=== PATIENT | female | born 1960 | race Caucasian/White ===

== ENCOUNTER → 2016-07-11 | Outpatient (CLI) | payer MEDICARE ==
[2014-05-16 16:15] VITALS: BP 138/77
[~2016-07-11] MED LIST: ARIP5TAB6 PO; FAMO-63 PO; HYDR12.58 PO; LEVO50TA5 PO; LISI-334 PO; MUCINEX; OXYB10TA PO
--- NOTE | 2016-07-11 08:53 | RAD ---
Right lower extremity venous ultrasound, 07/11/2016 : History: Follow-up DVT Duplex evaluation including grayscale, color flow and spectral Doppler analysis was performed. The femoral and popliteal veins show no filling defects to suggest DVT. The visualized calf veins are unremarkable. IMPRESSION: There is no sonographic evidence of deep vein thrombosis in the right lower extremity
== END | disposition home or self-care (01) ==
LOC: US 07:37
PROVIDERS: ATTEND Nurse Practitioner Family
DX: I82.401 Acute embolism and thrombosis of unspecified deep veins of right lower extremity (principal)
CPT/HCPCS: 93971

== ENCOUNTER → 2016-08-17 | Outpatient (CLI) | payer MEDICARE ==
[2014-05-16 16:15] VITALS: BP 138/77
[~2016-08-17] MED LIST changes: +ARIP5TAB13 PO; -ARIP5TAB6 PO
--- NOTE | 2016-08-17 12:56 | RAD ---
Thoracic spine, 3 views, 08/17/2016: History: Spine pain The thoracic vertebral heights are well-maintained. No fracture or destructive bony lesion is seen. There are minimal scattered marginal spurs. The paraspinous soft tissues are unremarkable. IMPRESSION: 1. Minimal marginal spurring. 2. No acute abnormality is detected. Lumbar spine, 3 views, 08/17/2016: Comparison is made to a study from 12/09/2015. The lumbar vertebral heights are well-maintained. There are moderate degenerative changes involving the facet joints bilaterally in the lower lumbar spine. A minimal associated spondylolisthesis has developed at the L4-5 level. There is minimal narrowing of the disc spaces at L4-5 and L5-S1. Aortic calcific plaquing is present. IMPRESSION: 1. Moderate facet joint arthropathy in the lumbar spine with a minimal associated spondylolisthesis at L4-5. 2. No acute bony abnormality is detected.
== END | disposition home or self-care (01) ==
LOC: DXRADRC 12:00
PROVIDERS: ATTEND Nurse Practitioner Family
DX: M43.16 Spondylolisthesis, lumbar region (principal); M12.88 Other specific arthropathies, not elsewhere classified, other specified site
CPT/HCPCS: 72072; 72100

== ENCOUNTER 2016-11-08 06:27 | Emergency (ER) | payer MEDICARE ==
[~2016-11-08] VITALS: Ht 165.1 cm; Wt 106.6 kg
[2016-11-08] MEDS ORDERED: IV NORMAL SALINE 1,000ML 1,000 ML IV ONE (07:00)
[2016-11-08] MEDS ORDERED: diphenhydrAMINE 50 MG/ML VIAL IVP ONE (07:00)
[2016-11-08] MEDS ORDERED: fentaNYL PF 100 MCG/2 ML VIAL IV ONE (07:00)
[2016-11-08] MEDS ORDERED: METOCLOPRAMIDE HCL 10 MG/2 ML VIAL. IV ONE (07:00)
[2016-11-08] MEDS ORDERED: LISI1TAB7 PO (07:08)
[2016-11-08] MEDS ORDERED: RIVA10TA PO (07:08)
[2016-11-08] MEDS ORDERED: ACET325T9 PO (07:08)
[2016-11-08] MEDS ORDERED: CITA20TA5 PO (07:08)
[2016-11-08] MEDS ORDERED: ARIP10TA9 PO (07:08)
[2016-11-08] MEDS ORDERED: LEVO75TA5 PO (07:08)
[2016-11-08] MEDS ORDERED: TOLT4CAP PO (07:08)
[2016-11-08] MEDS ORDERED: CLON0.5T3 PO (07:11)
[2016-11-08 07:27] LABS: BASO # 0.1 x10^3/uL (0.0-0.2); BASO % 1 % (0-3); EOS # 0.1 x10^3/uL (0.0-0.7); EOS % 1 % (0-3); HEMATOCRIT 44.8 % (36.0-47.0); HEMOGLOBIN 14.9 g/dL (12.0-15.5); LYMPH # 2.8 x10^3/uL (1.0-4.8); LYMPH % 28 % (24-48); MEAN CORPUSCULAR HEMOGLOBIN 29 pg (25-35); MEAN CORPUSCULAR HGB CONC 33 g/dL (31-37); MEAN CORPUSCULAR VOLUME 87 fL (79-100); MONO # 0.8 x10^3/uL (0.0-1.1); MONO % 8 % (0-9); NEUT # 6.1 x10^3uL (1.8-7.7); NEUT % 62 % (31-73); PLATELET COUNT 201 x10^3/uL (140-400); RED BLOOD COUNT 5.18 x10^6/uL (3.50-5.40); RED CELL DISTRIBUTION WIDTH 14.4 % (11.5-14.5); WHITE BLOOD COUNT 9.9 x10^3/uL (4.0-11.0)
--- NOTE | 2016-11-08 07:27 | RAD ---
Exam performed: CT scan of the head without contrast. Date of Service: 11/08/16. Comparison: CT head without contrast from 01/27/11. Clinical History: Blurred vision, dizziness and headache. Technique: Helical acquisitions are obtained from the foramen magnum to the vertex without intravenous administration of contrast. Findings: The ventricles are midline without evidence of dilatation. Normal mcdonnell-white differentiation is maintained. There is no extra axial fluid collection, intraparenchymal hemorrhage or mass lesion. The visualized portions of the orbits, paranasal sinuses and the mastoid air cells appear clear. The calvarium is intact. Impression: 1. No acute intracranial process detected. PQRS Compliance Statement: One or more of the following individualized dose reduction techniques were utilized for this examination: 1. Automated exposure control 2. Adjustment of the mA and/or kV according to patient size 3. Use of iterative reconstruction technique
[2016-11-08 07:28] LABS: CALCIUM 9.2 mg/dL (8.5-10.1); CREATININE 0.9 mg/dL (0.6-1.0); POTASSIUM 3.7 mmol/L (3.5-5.1)
[2016-11-08] MEDS ORDERED: KETOROLAC 30 MG/ML VIAL. IV ONE (08:30)
[2016-11-08 08:55] VITALS: BP 118/63
--- NOTE | 2016-11-08 14:44 | ED.ADGEN ---
Past History Past Medical History: Anxiety, Asthma, Bipolar, COPD, Depression, DVT, Hypertension Past Surgical History: No Surgical History Alcohol Use: None Drug Use: Benzodiazepine Adult General Chief Complaint Chief Complaint Headache HPI HPI Patient is a 56-year-old female presents with generalized headache after waking this morning. Headache is described as throbbing, rated moderate to severe. Patient also reports scalp tenderness with burning sensation. No identifiable rash. A chest is not relieved or improved with position change or exertion. Patient's taken Tylenol limited improvement. Patient noted to be hypertensive on ED arrival. Patient did take blood pressure medications just prior to ED arrival Denies neck pain, neck stiffness or rash, sore throat, fever. Denies sinus congestion, tenderness. No other acute symptoms or complaints. No familial history of subarachnoid hemorrhage. This is not the worst headache patient's life. Review of Systems Review of Systems ROS as per HPI. Current Medications Current Medications Current Medications Medications (Trade) Dose Ordered Sig/Fiorella Start Time Stop Time Status Last Admin Dose Admin Diphenhydramine HCl (Benadryl) 25 mg 1X ONCE 11/08/16 07:00 11/08/16 07:01 DC 11/08/16 07:08 25 MG Fentanyl Citrate (Fentanyl 2ml Vial) 75 mcg 1X ONCE 11/08/16 07:00 11/08/16 07:01 DC 11/08/16 07:09 75 MCG Ketorolac Tromethamine (Toradol) 30 mg 1X ONCE 11/08/16 08:30 11/08/16 08:31 DC 11/08/16 08:30 30 MG Metoclopramide HCl (Reglan) 10 mg 1X ONCE 11/08/16 07:00 11/08/16 07:01 DC 11/08/16 07:08 10 MG Sodium Chloride 1,000 ml @ 1,000 mls/hr 1X ONCE 11/08/16 07:00 11/08/16 07:59 DC 11/08/16 07:04 1,000 MLS/HR Allergies Allergies Allergies Coded Allergies Type Severity Reaction Last Updated Verified amoxicillin Allergy Intermediate Rash 05/16/14 Yes carbamazepine Allergy Intermediate 05/16/14 Yes penicillin G Allergy Intermediate Hives 05/16/14 Yes Uncoded Allergies Type Severity Reaction Last Updated Verified control Adverse Reaction Intermediate 05/16/14 Physical Exam Physical Exam Constitutional: Well developed, well nourished, no acute distress, non-toxic appearance. [] HENT: Normocephalic, atraumatic, bilateral external ears normal, oropharynx moist, no oral exudates, nose normal. [] Eyes: PERRLA, EOMI, conjunctiva normal, no discharge. [] Neck: Normal range of motion, no tenderness, supple, no stridor. [] Cardiovascular:Heart rate regular rhythm, no murmur [] Lungs & Thorax: Bilateral breath sounds clear to auscultation [] Abdomen: Bowel sounds normal, soft, no tenderness, no masses, no pulsatile masses. [] Skin: Warm, dry, no erythema, no rash. [] Back: No tenderness. [] Extremities: No tenderness, no cyanosis, no clubbing, ROM intact, no edema. [] Neurologic: Alert and oriented X 3, CN@-12, normal motor function, normal sensory function, no focal deficits noted. [] Psychologic: Affect normal, judgement normal, mood normal. [] Current Patient Data Vital Signs Vital Signs Date Time Temp Pulse Resp B/P (MAP) Pulse Ox O2 Delivery O2 Flow Rate FiO2 11/08/16 08:55 58 16 118/63 (81) 97 Room Air 11/08/16 06:40 97.7 Lab Results Laboratory Tests Test 11/08/16 06:45 White Blood Count 9.9 x10^3/uL (4.0-11.0) Red Blood Count 5.18 x10^6/uL (3.50-5.40) Hemoglobin 14.9 g/dL (12.0-15.5) Hematocrit 44.8 % (36.0-47.0) Mean Corpuscular Volume 87 fL (79-100) Mean Corpuscular Hemoglobin 29 pg (25-35) Mean Corpuscular Hemoglobin Concent 33 g/dL (31-37) Red Cell Distribution Width 14.4 % (11.5-14.5) Platelet Count 201 x10^3/uL (140-400) Neutrophils (%) (Auto) 62 % (31-73) Lymphocytes (%) (Auto) 28 % (24-48) Monocytes (%) (Auto) 8 % (0-9) Eosinophils (%) (Auto) 1 % (0-3) Basophils (%) (Auto) 1 % (0-3) Neutrophils # (Auto) 6.1 x10^3uL (1.8-7.7) Lymphocytes # (Auto) 2.8 x10^3/uL (1.0-4.8) Monocytes # (Auto) 0.8 x10^3/uL (0.0-1.1) Eosinophils # (Auto) 0.1 x10^3/uL (0.0-0.7) Basophils # (Auto) 0.1 x10^3/uL (0.0-0.2) Prothrombin Time 11.7 SEC (9.4-11.4) H Prothrombin Time INR 1.1 (0.9-1.1) Sodium Level 140 mmol/L (136-145) Potassium Level 3.7 mmol/L (3.5-5.1) Chloride Level 103 mmol/L (98-107) Carbon Dioxide Level 31 mmol/L (21-32) Anion Gap 6 (6-14) Blood Urea Nitrogen 14 mg/dL (7-20) Creatinine 0.9 mg/dL (0.6-1.0) Estimated GFR (Cockcroft-Gault) 65.0 Glucose Level 100 mg/dL (70-99) H Calcium Level 9.2 mg/dL (8.5-10.1) EKG EKG [] Radiology/Procedures Radiology/Procedures [CT head: negative. ] Course & Med Decision Making Course & Med Decision Making Pertinent Labs and Imaging studies reviewed. (See chart for details) [Headache resolved with treatment. Blood pressure improved. No focal neurologic deficits on evaluation. We'll treat supportively with PCP follow-up. Return precautions reviewed.] Final Impression Final Impression [1 Headache 2. Accelerated hypertension] Problems: Dragon Disclaimer Dragon Disclaimer This electronic medical record was generated, in whole or in part, using a voice recognition dictation system. PILAR VIDAL DO Nov 08, 2016 14:44
== END 2016-11-08 08:55 | disposition home or self-care (01) ==
LOC: ER 06:27
DX: R51 Headache (principal); I10 Essential (primary) hypertension; J44.9 Chronic obstructive pulmonary disease, unspecified; F41.9 Anxiety disorder, unspecified; F31.9 Bipolar disorder, unspecified; Z86.718 Personal history of other venous thrombosis and embolism; Z88.1 Allergy status to other antibiotic agents; Z88.0 Allergy status to penicillin; Z88.8 Allergy status to other drugs, medicaments and biological substances
CPT/HCPCS: 36415; 70450; 80048; 85025; 85610; 96361; 96374; 96375; 99285; J1200; J1885; J2765; J3010; J7030

== ENCOUNTER → 2016-11-13 | Outpatient (CLI) | payer MEDICARE ==
[2016-11-08 08:55] VITALS: BP 118/63
[~2016-11-13] MED LIST changes: +ACET325T9 PO; +ARIP10TA9 PO; +CITA20TA5 PO; +CLON0.5T3 PO; +LEVO75TA5 PO; +LISI1TAB7 PO; +RIVA10TA PO; +TOLT4CAP PO
--- NOTE | 2016-11-13 12:32 | RAD ---
Chest, 2 views, 11/13/2016: History: Neck pain, COPD Comparison is made to a study from 01/19/2016. The heart size and pulmonary vascularity are normal. No pulmonary infiltrates are seen. There is no evidence of pleural fluid. IMPRESSION: No acute cardiopulmonary abnormality is detected.
--- NOTE | 2016-11-13 16:13 | RAD ---
Cervical spine, 3 views, 11/13/2016: History: Neck pain There are moderate scattered spurs in the mid and lower cervical spine. The disc spaces are only mildly narrowed. There are moderate degenerative changes involving scattered facet joints bilaterally. No fracture or dislocation is identified. The prevertebral soft tissues are unremarkable. IMPRESSION: 1. Moderate multilevel degenerative change. 2. No acute bony abnormality is detected.
== END | disposition home or self-care (01) ==
LOC: DXRADRC 10:36
PROVIDERS: ATTEND Nurse Practitioner Family
DX: J44.9 Chronic obstructive pulmonary disease, unspecified (principal); M47.892 Other spondylosis, cervical region; M53.82 Other specified dorsopathies, cervical region; Z85.118 Personal history of other malignant neoplasm of bronchus and lung; Z87.891 Personal history of nicotine dependence
CPT/HCPCS: 71020; 72040

== ENCOUNTER → 2016-12-04 | Outpatient (CLI) | payer MEDICARE ==
[2016-11-08 08:55] VITALS: BP 118/63
--- NOTE | 2016-12-07 18:05 | RAD ---
APPROVED REPORT Patient Location : OUT-PATIENT Indications Varicose Veins Limited grayscale images of the bilateral common femoral veins and saphenofemoral junctions does not reveal any evidence of thrombus. The right great saphenous vein measures approximately 4.9 mm and parks s not show any evidence of reflux. The left great saphenous vein measures approximately 5 mm and does not show any evidence of reflux. There are bilateral spider veins noted on the lower extremities. The bilateral lesser saphenous veins do not demonstrate any reflux and the right lesser saphenous vein measures 5.3 mm while the left les ser saphenous vein measures 4.6 mm in greatest dimension. Critical Notification Critical Value: No <Conclusion> Negative for reflux in the bilateral greater and lesser saphenous veins
== END | disposition home or self-care (01) ==
LOC: US 08:35
PROVIDERS: ATTEND Internal Medicine Cardiovascular Disease
DX: I87.2 Venous insufficiency (chronic) (peripheral) (principal)
CPT/HCPCS: 93970

== ENCOUNTER → 2016-12-04 | Outpatient (CLI) | payer MEDICARE ==
[2016-11-08 08:55] VITALS: BP 118/63
--- NOTE | 2016-12-04 12:38 | CARD ---
APPROVED REPORT EXAM: Two-dimensional and M-mode echocardiogram with Doppler and color Doppler. Other Information Quality : Average Rhythm : NSR INDICATION Hypertension/HCVD 2D DIMENSIONS RVDd2.6 (2.9-3.5cm)Left Atrium(2D)3.5 (1.6-4.0cm) IVSd1.1 (0.7-1.1cm)Aortic Root(2D)3.1 (2.0-3.7cm) LVDd5.0 (3.9-5.9cm)LVOT Diameter2.1 (1.8-2.4cm) PWd1.1 (0.7-1.1cm)LVDs3.6 (2.5-4.0cm) FS (%) 29.1 %SV66.3 ml LVEF(%)55.6 (>50%) Aortic Valve AoV Peak Kobi.134.6cm/sAoV VTI31.2cm AO Peak GR.7.3mmHgLVOT Peak Kobi.95.6cm/s LVOT VTI 23.77cmAO Mean GR.4mmHg AKIKO (VMAX)2.35jc8UQB (VTI)2.57cm2 Mitral Valve MV E Xmrmwlev12.0cm/sMV DECEL [id number] MV A Uulwlmgy24.3cm/sMV TYK79tz E/A Ratio1.1MV A Qhffvuhi394xg MVA (PHT)4.33cm2 Tricuspid Valve TR P. Nrpivhuo924hz/sRAP JPEYKMPZ4bqNh TR Peak Gr.70iuLkUOEJ51ddEf Pulmonary Vein S1 Rrsljwfh67.6cm/sD2 Tfzrheeg50.5cm/s LEFT VENTRICLE The left ventricle is normal size. There is normal left ventricular wall thickness. Left ventricle sy stolic function is normal. The Ejection Fraction is 55-60%. There is normal LV segmental wall motion. The left ventricular diastolic function and filling is normal for age. There is no ventricular septa l defect visualized. RIGHT VENTRICLE The right ventricle is normal size. The right ventricular systolic function is normal. ATRIA The left atrium size is normal. The right atrium size is normal. The interatrial septum is intact wit h no evidence for an atrial septal defect or patent foramen ovale as noted on 2-D or Doppler imaging. AORTIC VALVE The aortic valve is not well visualized. Doppler and Color Flow revealed no significant aortic regurg itation. There is no significant aortic valvular stenosis. MITRAL VALVE The mitral valve is normal in structure and function. There is no mitral valve stenosis. Doppler and Color Flow revealed trace mitral regurgitation. TRICUSPID VALVE The tricuspid valve is normal in structure. Doppler and Color Flow revealed mild tricuspid regurgitat ion. The PA pressure was estimated at 30 mmHg. There is no tricuspid valve stenosis. PULMONIC VALVE The pulmonic valve is not well visualized. Doppler and Color Flow revealed no pulmonic valvular regur gitation. There is no pulmonic valvular stenosis. GREAT VESSELS The aortic root is normal in size. The ascending aorta is normal in size. Normal pulmonary venous adolph w (Doppler). The IVC is normal in size and collapses >50% with inspiration. PERICARDIAL EFFUSION There is no evidence of significant pericardial effusion. Critical Notification Critical Value: No <Conclusion> The left ventricle is normal size. Left ventricle systolic function is normal. The Ejection Fraction is 55-60%. There is normal left ventricular wall thickness. There is no significant aortic valvular stenosis. Doppler and Color Flow revealed no significant aortic regurgitation. Doppler and Color Flow revealed trace mitral regurgitation. Doppler and Color Flow revealed mild tricuspid regurgitation. The PA pressure was estimated at 30 mmHg.
== END | disposition home or self-care (01) ==
LOC: ECHO 07:46
PROVIDERS: ATTEND Internal Medicine Cardiovascular Disease
DX: I34.0 Nonrheumatic mitral (valve) insufficiency (principal); I10 Essential (primary) hypertension; R60.0 Localized edema
CPT/HCPCS: 93306

== ENCOUNTER → 2017-01-14 | Outpatient (CLI) | payer MEDICARE ==
--- NOTE | 2017-01-14 10:04 | RAD ---
Three-view study of the left knee History: Left knee pain for 3 months. Findings: No acute fracture or dislocation or osteolytic process is seen. Small joint effusion is evident. There is degenerative spurring and mild joint space narrowing of the medial and lateral tibiofemoral joint compartments and the patellofemoral joint compartment. IMPRESSION: Mild primary tricompartmental degenerative osteoarthritis.
--- NOTE | 2017-01-14 11:20 | RAD ---
EXAM: Left lower extremity venous Doppler. HISTORY: Left lower extremity pain/swelling. COMPARISON: None. FINDINGS: Grayscale and Doppler analysis of the left lower extremity deep venous system was performed with graded compression and augmentation. The common femoral, greater saphenous, superficial femoral, popliteal and calf veins were assessed. There is no evidence of deep venous thrombosis. IMPRESSION: 1. No evidence of deep venous thrombosis.
== END | disposition home or self-care (01) ==
LOC: DXRAD 09:26
PROVIDERS: ATTEND Specialist
DX: M16.12 Unilateral primary osteoarthritis, left hip (principal); M25.452 Effusion, left hip; M79.605 Pain in left leg; M79.89 Other specified soft tissue disorders
CPT/HCPCS: 73562; 93971

== ENCOUNTER → 2017-06-05 | Outpatient (CLI) | payer MEDICARE ==
--- NOTE | 2017-06-05 09:49 | RAD ---
Indication: Bilateral leg pain and calf pain for one week. Technique: Grayscale, color Doppler and spectral waveform images of the bilateral lower extremity. Comparison: Previous study from 04/21/2015. Findings: Bilateral lower extremity major arteries demonstrate triphasic waveforms and no abnormally elevated peak systolic velocity. No grayscale imaging evidence of significant atherosclerotic disease. Impression: No sonographic evidence of significant atherosclerotic disease or hemodynamically significant stenosis.
== END | disposition home or self-care (01) ==
LOC: US 08:46
PROVIDERS: ATTEND Specialist
DX: M79.605 Pain in left leg (principal); M79.604 Pain in right leg
CPT/HCPCS: 93925

== ENCOUNTER → 2017-12-13 | Outpatient (CLI) | payer MEDICARE ==
[~2017-12-13] MED LIST changes: -CITA20TA5 PO; +CITA20TA6 PO; +CLON0.5T11 PO; -CLON0.5T3 PO
--- NOTE | 2017-12-13 14:59 | RAD ---
EXAM: Pelvic sonogram. HISTORY: Uterovaginal prolapse. TECHNIQUE: Transabdominal and transvaginal sonographic imaging of the pelvis was performed. COMPARISON: None. FINDINGS: The exam is limited due to body habitus. The uterus is retroverted and measures 7.3 x 5.5 x 3.9 cm. The the endometrial stripe measures 6.4 mm in thickness. There are suspected small fluid collections within the endometrium. There are nabothian cysts within the cervix. The right ovary measures 1.6 x 1.5 x 2.1 cm. The left ovary measures 1.7 x 1.5 x 2.1 cm. There is normal blood flow within both ovaries. There is no pelvic free fluid. IMPRESSION: 1. Slightly thickened endometrial stripe for the postmenopausal status the patient and small suspected endometrial cyst or fluid collections. Tissue sampling can be performed for definitive diagnosis if there is postmenopausal bleeding or alternative concern for endometrial pathology. 2. Retroverted uterus and nabothian cysts within the cervix. Electronically signed by: Cheryl Thapa MD (12/13/2017 2:55 PM) [facility]
== END | disposition home or self-care (01) ==
LOC: US 08:40
PROVIDERS: ATTEND Obstetrics & Gynecology
DX: N85.4 Malposition of uterus (principal)
CPT/HCPCS: 76830; 76856

== ENCOUNTER 2018-10-19 14:08 | Emergency (ER) | payer MEDICARE ==
[2018-10-19 15:01] VITALS: BP 135/93
[2018-10-19] MEDS ORDERED: methylPREDNISolone SOD SUCC PF 125 MG/2 ML VIAL. IV ONE (15:45)
[2018-10-19] MEDS ORDERED: IPRATRPIUM/ALBUTEROL 0.5/2.5MG 3 ML NEBU. NEB ONE (15:45)
--- NOTE | 2018-10-19 15:58 | RAD ---
Exam: Chest 2 views INDICATION: Dyspnea TECHNIQUE: Frontal and lateral views of the chest Comparisons: 11/13/2016 FINDINGS: The cardiomediastinal silhouette and pulmonary vessels are within normal limits. The lung and pleural spaces are clear. IMPRESSION: No acute cardiopulmonary process. Electronically signed by: Nataliia Shepherd MD (10/19/2018 3:55 PM) [facility]
[2018-10-19 15:59] LABS: BASO # 0.2 x10^3/uL (0.0-0.2); BASO % 1 % (0-3); EOS # 0.2 x10^3/uL (0.0-0.7); EOS % 1 % (0-3); HEMATOCRIT 40.4 % (36.0-47.0); HEMOGLOBIN 12.8 g/dL (12.0-15.5); LYMPH # 2.8 x10^3/uL (1.0-4.8); LYMPH % 20 % (24-48); MEAN CORPUSCULAR HEMOGLOBIN 25 pg (25-35); MEAN CORPUSCULAR HGB CONC 32 g/dL (31-37); MEAN CORPUSCULAR VOLUME 78 fL (79-100); MONO # 1.3 x10^3/uL (0.0-1.1); MONO % 9 % (0-9); NEUT # 9.6 x10^3uL (1.8-7.7); NEUT % 69 % (31-73); PLATELET COUNT 346 x10^3/uL (140-400); RED BLOOD COUNT 5.16 x10^6/uL (3.50-5.40); WHITE BLOOD COUNT 13.9 x10^3/uL (4.0-11.0)
[2018-10-19 16:15] LABS: ALBUMIN 3.4 g/dL (3.4-5.0); ALBUMIN/GLOBULIN RATIO 0.9 (1.0-1.7); CALCIUM 9.1 mg/dL (8.5-10.1); CREATININE 0.9 mg/dL (0.6-1.0); GFR 64.5; POTASSIUM 3.4 mmol/L (3.5-5.1); TOTAL BILIRUBIN 0.3 mg/dL (0.2-1.0); TOTAL PROTEIN 7.2 g/dL (6.4-8.2)
--- NOTE | 2018-10-19 16:18 | PHYS DOC ---
Past History Past Medical History: Bipolar, Depression, GERD, Hypertension Past Surgical History: Appendectomy, Hysterectomy Alcohol Use: None Drug Use: None Adult General Chief Complaint Chief Complaint: MULTIPLE COMPLAINTS HPI HPI Patient is a 58-year-old female who presents with one-week history of cough, congestion, wheezing and some diarrhea over the last few days. Patient states that she had been in to see her doctor shortly after onset of symptoms and was prescribed antibiotics and steroids and states that she finished the antibiotic but she had lost the prescription for steroids. She states that initially symptoms had improved but are getting worse again. She is not sure whether or not she has been running a fever but does indicate that she has had some hot and cold spells where she gets sweaty at times. She denies any nausea or vomiting. She does indicate that she is getting sore in her chest from all the coughing.[] Review of Systems Review of Systems Constitutional: Denies fever or chills [] Respiratory: Complains of cough and shortness of breath [] Cardiovascular: No additional information not addressed in HPI [] GI: Denies abdominal pain, nausea or vomiting. Complains of diarrhea [] Neurologic: Denies headache, focal weakness or sensory changes [] All other systems were reviewed and found to be within normal limits, except as documented in this note. Current Medications Current Medications Current Medications Medications (Trade) Dose Ordered Sig/Fiorella Start Time Stop Time Status Last Admin Dose Admin Albuterol/ Ipratropium (Duoneb) 3 ml 1X ONCE 10/19/18 15:45 10/19/18 15:46 DC 10/19/18 15:47 3 ML Methylprednisolone Sodium Succinate (SOLU-Medrol 125MG VIAL) 125 mg 1X ONCE 10/19/18 15:45 10/19/18 15:46 DC 10/19/18 15:47 125 MG Allergies Allergies Allergies Coded Allergies Type Severity Reaction Last Updated Verified amoxicillin Allergy Intermediate Rash 05/16/14 Yes carbamazepine Allergy Intermediate 05/16/14 Yes penicillin G Allergy Intermediate Hives 05/16/14 Yes Uncoded Allergies Type Severity Reaction Last Updated Verified control Adverse Reaction Intermediate 05/16/14 Physical Exam Physical Exam Constitutional: Well developed, well nourished, no acute distress, non-toxic appearance. [] HENT: Normocephalic, atraumatic, bilateral external ears normal, oropharynx moist, no oral exudates, nose normal. [] Eyes: PERRLA, EOMI, conjunctiva normal, no discharge. [] Neck: Normal range of motion, no tenderness, supple, no stridor. [] Cardiovascular:Heart rate regular rhythm, no murmur [] Lungs & Thorax: Fine rhonchi are noted bilaterally to auscultation [] Abdomen: Bowel sounds normal, soft, no tenderness. [] Skin: Warm, dry, no erythema, no rash. [] Extremities: No tenderness, no cyanosis, no clubbing, ROM intact, no edema. [] Neurologic: Alert and oriented X 3, normal motor function, normal sensory function, no focal deficits noted. [] Current Patient Data Vital Signs Vital Signs Date Time Temp Pulse Resp B/P (MAP) Pulse Ox O2 Delivery O2 Flow Rate FiO2 10/19/18 15:01 97.8 69 18 94 Room Air Lab Results Laboratory Tests Test 10/19/18 15:44 White Blood Count 13.9 x10^3/uL (4.0-11.0) H Red Blood Count 5.16 x10^6/uL (3.50-5.40) Hemoglobin 12.8 g/dL (12.0-15.5) Hematocrit 40.4 % (36.0-47.0) Mean Corpuscular Volume 78 fL (79-100) L Mean Corpuscular Hemoglobin 25 pg (25-35) Mean Corpuscular Hemoglobin Concent 32 g/dL (31-37) Red Cell Distribution Width 17.0 % (11.5-14.5) H Platelet Count 346 x10^3/uL (140-400) Neutrophils (%) (Auto) 69 % (31-73) Lymphocytes (%) (Auto) 20 % (24-48) L Monocytes (%) (Auto) 9 % (0-9) Eosinophils (%) (Auto) 1 % (0-3) Basophils (%) (Auto) 1 % (0-3) Neutrophils # (Auto) 9.6 x10^3uL (1.8-7.7) H Lymphocytes # (Auto) 2.8 x10^3/uL (1.0-4.8) Monocytes # (Auto) 1.3 x10^3/uL (0.0-1.1) H Eosinophils # (Auto) 0.2 x10^3/uL (0.0-0.7) Basophils # (Auto) 0.2 x10^3/uL (0.0-0.2) Sodium Level 139 mmol/L (136-145) Potassium Level 3.4 mmol/L (3.5-5.1) L Chloride Level 101 mmol/L (98-107) Carbon Dioxide Level 30 mmol/L (21-32) Anion Gap 8 (6-14) Blood Urea Nitrogen 11 mg/dL (7-20) Creatinine 0.9 mg/dL (0.6-1.0) Estimated GFR (Cockcroft-Gault) 64.5 BUN/Creatinine Ratio 12 (6-20) Glucose Level 85 mg/dL (70-99) Calcium Level 9.1 mg/dL (8.5-10.1) Total Bilirubin 0.3 mg/dL (0.2-1.0) Aspartate Amino Transferase (AST) 15 U/L (15-37) Alanine Aminotransferase (ALT) 22 U/L (14-59) Alkaline Phosphatase 86 U/L (46-116) JD-Rsk-Z-Type Natriuretic Peptide 67 pg/mL (0-124) Total Protein 7.2 g/dL (6.4-8.2) Albumin 3.4 g/dL (3.4-5.0) Albumin/Globulin Ratio 0.9 (1.0-1.7) L EKG EKG [] Radiology/Procedures Radiology/Procedures [] Impressions: PROCEDURE: CHEST PA & LATERAL Exam: Chest 2 views INDICATION: Dyspnea TECHNIQUE: Frontal and lateral views of the chest Comparisons: 11/13/2016 FINDINGS: The cardiomediastinal silhouette and pulmonary vessels are within normal limits. The lung and pleural spaces are clear. IMPRESSION: No acute cardiopulmonary process. Electronically signed by: Nataliia Shepherd MD (10/19/2018 3:55 PM) [facility] Course & Med Decision Making Course & Med Decision Making Pertinent Labs and Imaging studies reviewed. (See chart for details) [] Dragon Disclaimer Dragon Disclaimer This electronic medical record was generated, in whole or in part, using a voice recognition dictation system. Departure Departure: Impression: Primary Impression: Bronchitis with bronchospasm Additional Impression: Diarrhea Disposition: 01 HOME, SELF-CARE Condition: STABLE Referrals: JEANETTE JOY MD (PCP) Patient Instructions: Acute Bronchitis, Bronchospasm, Adult, Diarrhea Scripts Metronidazole (FLAGYL) 500 Mg Tablet 500 MG PO 3 TIMES A DAY for iNFECTION, #30 TAB Prov: NEISHA GODFREY Jr. DO 10/19/18 Guaifenesin/Codeine Phosphate (CHERATUSSIN AC SYRUP) 118 Ml Liquid 5 ML PO PRN Q6HRS PRN for COUGH, #120 ML Prov: NEISHA GODFREY Jr. DO 10/19/18 Diphenoxylate Hcl/Atropine (LOMOTIL TABLET) 1 Each Tablet 1 TAB PO TID PRN for DIARRHEA, #15 TAB Prov: NEISHA GODFREY Jr. DO 10/19/18 Levofloxacin (LEVAQUIN) 500 Mg Tablet 1 TAB PO DAILY for INFECTION, #10 TAB Prov: NEISHA GODFREY Jr. DO 10/19/18 Problem Qualifiers Additional Impression: Diarrhea Diarrhea type: unspecified type Qualified Codes: R19.7 - Diarrhea, un specified NEISHA GODFREY Jr. DO Oct 19, 2018 16:18
--- NOTE | 2018-10-19 16:22 | EKG ---
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
[2018-10-19] MEDS ORDERED: levoFLOXacin 500 MG TABLET PO ONE (16:45)
[2018-10-19] MEDS ORDERED: METR500T PO (17:12)
[2018-10-19] MEDS ORDERED: GUAI118L20 PO (17:12)
[2018-10-19] MEDS ORDERED: LEVO500T59 PO (17:12)
[2018-10-19] MEDS ORDERED: DIPH1TAB PO (17:12)
== END 2018-10-19 17:47 | disposition home or self-care (01) ==
LOC: ER 14:08
DX: J98.01 Acute bronchospasm (principal); J40 Bronchitis, not specified as acute or chronic; R19.7 Diarrhea, unspecified; K21.9 Gastro-esophageal reflux disease without esophagitis; I10 Essential (primary) hypertension; Z88.0 Allergy status to penicillin; Z88.1 Allergy status to other antibiotic agents; Z88.8 Allergy status to other drugs, medicaments and biological substances
CPT/HCPCS: 36415; 71046; 80053; 83880; 85025; 93005; 94640; 96374; 99285; J2930; J7620

== ENCOUNTER 2018-11-06 17:31 | Emergency (ER) | payer MEDICARE ==
[~2018-11-06] VITALS: Ht 165.1 cm; Wt 113.4 kg
[~2018-11-06 17:31] MED LIST changes: +DIPH1TAB PO; +GUAI118L20 PO; +LEVO500T59 PO; +LISI1TAB20 PO; -LISI1TAB7 PO; +METR500T PO; -OXYB10TA PO; +OXYB10TA2 PO
--- NOTE | 2018-11-06 18:14 | EKG ---
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
[2018-11-06] MEDS ORDERED: IV NORMAL SALINE 1,000ML 1,000 ML IV ONE (18:45)
[2018-11-06] MEDS ORDERED: ONDANSETRON PF 4 MG/2 ML VIAL. IV ONE (18:45)
--- NOTE | 2018-11-06 19:21 | RAD ---
CT Abdomen and Pelvis without contrast History: Lower abdominal pain, nausea and vomiting Technique: Noncontrast CT imaging was performed of the abdomen and pelvis. Multiplanar images are reviewed. Exposure: One or more of the following individualized dose reduction techniques were utilized for this examination: 1. Automated exposure control 2. Adjustment of the mA and/or kV according to patient size 3. Use of iterative reconstruction technique. Comparison: July 17, 2012 Findings: There is [id number] size hiatal hernia, nonspecific wall thickening of involved segment. Accurate evaluation of abdominal visceral organs is limited without intravenous contrast, no obvious focal abnormality of the liver or pain previous. Right lobe of the liver is enlarged about 20.8 cm longitudinal. There are some splenic granulomas. Gallbladder is present without obvious intraluminal abnormality by CT. There is no hydronephrosis of either kidney, no renal calculus. There is no adrenal nodularity. Accurate evaluation of bowel is limited without oral contrast. Bowel is not significantly dilated. There is no significant free fluid or free air. Reportedly there has been appendectomy. There has been hysterectomy. There is some fat in the inguinal canals bilaterally, no bowel. There is mild distention of the urinary bladder. There is mild sigmoid diverticulosis not associated with inflammatory change. There is likely of small left ventral fat-containing hernia with strandy change about the margin, no internal bowel. Fascial defect is probably on the order of about 0.5 cm. There is also mild nonspecific fluid in the small hernia sac, hernia sac estimated about 4 cm transverse. There is multilevel lumbar facet degenerative change. Impression: 1. There is mild colonic diverticulosis without evidence of diverticulitis. 2. There is small left ventral fat-containing hernia, some strandy change at the neck of hernia sac which could be seen with incarceration or strangulation, no associated bowel. There is also minimal fluid in the hernia sac. 3. There is hepatomegaly. 4. There is ucrcb-vs-yadndilz size hiatal hernia, nonspecific wall thickening of involved segment. Electronically signed by: Cristian Mehta MD (11/06/2018 7:18 PM) [facility]
[2018-11-06 19:25] LABS: BASO # 1.1 x10^3/uL (0.0-0.2); BASO % 9 % (0-3); EOS # 0.2 x10^3/uL (0.0-0.7); EOS % 1 % (0-3); HEMATOCRIT 38.9 % (36.0-47.0); HEMOGLOBIN 12.2 g/dL (12.0-15.5); LYMPH # 2.6 x10^3/uL (1.0-4.8); LYMPH % 21 % (24-48); MEAN CORPUSCULAR HEMOGLOBIN 25 pg (25-35); MEAN CORPUSCULAR HGB CONC 31 g/dL (31-37); MEAN CORPUSCULAR VOLUME 79 fL (79-100); MONO # 1.1 x10^3/uL (0.0-1.1); MONO % 8 % (0-9); NEUT # 7.8 x10^3uL (1.8-7.7); NEUT % 61 % (31-73); PLATELET COUNT 299 x10^3/uL (140-400); RED CELL DISTRIBUTION WIDTH 17.6 % (11.5-14.5); WHITE BLOOD COUNT 12.8 x10^3/uL (4.0-11.0)
[2018-11-06 19:41] LABS: ALBUMIN 3.3 g/dL (3.4-5.0); CALCIUM 9.2 mg/dL (8.5-10.1); CREATININE 0.9 mg/dL (0.6-1.0); GFR 64.5; POTASSIUM 3.3 mmol/L (3.5-5.1); TOTAL BILIRUBIN 0.4 mg/dL (0.2-1.0); TOTAL PROTEIN 6.5 g/dL (6.4-8.2)
[2018-11-06 20:44] LABS: BACTERIA,URINE 0 /HPF (0-FEW); BILIRUBIN,URINE NEG (NEG); CLARITY,URINE CLEAR; COLOR,URINE STRAW; GLUCOSE,URINE NEG (NEG); NITRITE,URINE NEG (NEG); RBC,URINE 0 /HPF (0-2); SQUAMOUS EPITHELIAL CELL,UR OCC /LPF; UROBILINOGEN,URINE 0.2 mg/dL (0.2 mg/dL); WBC,URINE OCC /HPF (0-4)
[2018-11-06 20:53] VITALS: BP 108/41
--- NOTE | 2018-11-06 21:21 | PHYS DOC ---
Past History Past Medical History: Bipolar, Depression, GERD, Hypertension Past Surgical History: Appendectomy, Hysterectomy Alcohol Use: None Drug Use: None Adult General Chief Complaint Chief Complaint: MULTIPLE COMPLAINTS HPI HPI Patient is a 58-year-old female presenting with multiple complaints. She is complaining of lower abdominal discomfort described as sharp and cramping just above her pubic bone she tells me she has had some diarrhea in the past she feels nauseous no vomiting she is not having any chest pain. She also was having a headache earlier with some left arm tingling she took a nap she woke up with the tingling she just was not feeling great so she came to the emergency room for evaluation. Patient does xarelto for hx of dvt in the past. She is a past medical history of hypertension bipolar she is status post hysterectomy. In addition she was feeling cold and hot at the same time she was worried about that so she came to the emergency room for evaluation. No head trauma Review of Systems Review of Systems Constitutional: Denies fever or chills [] Eyes: Denies change in visual acuity, redness, or eye pain [] HENT: Denies nasal congestion or sore throat [] Respiratory: Denies cough or shortness of breath [] Musculoskeletal: Denies back pain or joint pain [] Integument: Denies rash or skin lesions [] Neurologic: She does have a prior history of headaches All other systems were reviewed and found to be within normal limits, except as documented in this note. Current Medications Current Medications Current Medications Medications (Trade) Dose Ordered Sig/Fiorella Start Time Stop Time Status Last Admin Dose Admin Fentanyl Citrate (Fentanyl 2ml Vial) 50 mcg 1X ONCE 11/06/18 19:00 11/06/18 19:01 DC 11/06/18 20:02 50 MCG Ondansetron HCl (Zofran) 4 mg 1X ONCE 11/06/18 18:45 11/06/18 18:55 DC 11/06/18 20:02 4 MG Sodium Chloride 1,000 ml @ 1,000 mls/hr 1X ONCE 11/06/18 18:45 11/06/18 19:44 DC 11/06/18 20:02 1,000 MLS/HR Allergies Allergies Allergies Coded Allergies Type Severity Reaction Last Updated Verified amoxicillin Allergy Intermediate Rash 05/16/14 Yes carbamazepine Allergy Intermediate 05/16/14 Yes penicillin G Allergy Intermediate Hives 05/16/14 Yes Uncoded Allergies Type Severity Reaction Last Updated Verified control Adverse Reaction Intermediate 05/16/14 Physical Exam Physical Exam Constitutional: Well developed, well nourished, no acute distress, non-toxic appearance. [] HENT: Normocephalic, atraumatic, bilateral external ears normal, oropharynx moist, no oral exudates, nose normal. [] Eyes: PERRLA, EOMI, conjunctiva normal, no discharge. [] Neck: Normal range of motion, no tenderness, supple, no stridor. [] Cardiovascular:Heart rate regular rhythm, no murmur [] Lungs & Thorax: Bilateral breath sounds clear to auscultation [] Abdomen: Bowel sounds normal, soft, suprapubic with no rebound or guarding t enderness, no masses, no pulsatile masses. [] Skin: Warm, dry, no erythema, no rash. [] Back: No tenderness, no CVA tenderness. [] Extremities: No tenderness, no cyanosis, no clubbing, ROM intact, trace bilateral edema Neurologic: Alert and oriented X 3, normal motor function, normal sensory func tion, no focal deficits noted. [] Psychologic: Affect normal, judgement normal, mood normal. [] Current Patient Data Vital Signs Vital Signs Date Time Temp Pulse Resp B/P (MAP) Pulse Ox O2 Delivery O2 Flow Rate FiO2 11/06/18 20:02 16 96 bp in 110's on my evaluation, see nurses note for copmlete vitals Lab Results Laboratory Tests Test 11/06/18 19:00 11/06/18 19:30 White Blood Count 12.8 x10^3/uL (4.0-11.0) H Red Blood Count 4.90 x10^6/uL (3.50-5.40) Hemoglobin 12.2 g/dL (12.0-15.5) Hematocrit 38.9 % (36.0-47.0) Mean Corpuscular Volume 79 fL (79-100) Mean Corpuscular Hemoglobin 25 pg (25-35) Mean Corpuscular Hemoglobin Concent 31 g/dL (31-37) Red Cell Distribution Width 17.6 % (11.5-14.5) H Platelet Count 299 x10^3/uL (140-400) Neutrophils (%) (Auto) 61 % (31-73) Lymphocytes (%) (Auto) 21 % (24-48) L Monocytes (%) (Auto) 8 % (0-9) Eosinophils (%) (Auto) 1 % (0-3) Basophils (%) (Auto) 9 % (0-3) H Neutrophils # (Auto) 7.8 x10^3uL (1.8-7.7) H Lymphocytes # (Auto) 2.6 x10^3/uL (1.0-4.8) Monocytes # (Auto) 1.1 x10^3/uL (0.0-1.1) Eosinophils # (Auto) 0.2 x10^3/uL (0.0-0.7) Basophils # (Auto) 1.1 x10^3/uL (0.0-0.2) H Sodium Level 134 mmol/L (136-145) L Potassium Level 3.3 mmol/L (3.5-5.1) L Chloride Level 96 mmol/L (98-107) L Carbon Dioxide Level 31 mmol/L (21-32) Anion Gap 7 (6-14) Blood Urea Nitrogen 10 mg/dL (7-20) Creatinine 0.9 mg/dL (0.6-1.0) Estimated GFR (Cockcroft-Gault) 64.5 BUN/Creatinine Ratio 11 (6-20) Glucose Level 82 mg/dL (70-99) Calcium Level 9.2 mg/dL (8.5-10.1) Total Bilirubin 0.4 mg/dL (0.2-1.0) Aspartate Amino Transferase (AST) 14 U/L (15-37) L Alanine Aminotransferase (ALT) 16 U/L (14-59) Alkaline Phosphatase 77 U/L (46-116) Troponin I Quantitative < 0.017 ng/mL (0-0.055) Total Protein 6.5 g/dL (6.4-8.2) Albumin 3.3 g/dL (3.4-5.0) L Albumin/Globulin Ratio 1.0 (1.0-1.7) Urine Collection Type Unknown Urine Color Straw Urine Clarity Clear Urine pH 7.0 Urine Specific [place] 1.010 Urine Protein Neg (NEG-TRACE) Urine Glucose (UA) Neg mg/dL (NEG) Urine Ketones (Stick) Neg mg/dL (NEG) Urine Blood Neg (NEG) Urine Nitrite Neg (NEG) Urine Bilirubin Neg (NEG) Urine Urobilinogen Dipstick 0.2 mg/dL (0.2 mg/dL) Urine Leukocyte Esterase Neg (NEG) Urine RBC 0 /HPF (0-2) Urine WBC Occ /HPF (0-4) Urine Squamous Epithelial Cells Occ /LPF Urine Bacteria 0 /HPF (0-FEW) EKG EKG []EKG shows a normal sinus rhythm rate of 71 no acute ischemic changes noted interpreted by me the time of encounter Radiology/Procedures Radiology/Procedures [] Impressions: Impression: 1. There is mild colonic diverticulosis without evidence of diverticulitis. 2. There is small left ventral fat-containing hernia, some strandy change at the neck of hernia sac which could be seen with incarceration or strangulation, no associated bowel. There is also minimal fluid in the hernia sac. 3. There is hepatomegaly. 4. There is jnjrc-yd-qrszmpox size hiatal hernia, nonspecific wall thickening of involved segment. Electronically signed by: Cristian Mehta MD (11/06/2018 7:18 PM) [facility] Noted the above findings. I reevaluated the patient there is no focal findings on the physical examination at the site of the noted hernia no erythema induration or focal tenderness there. She said she has had a hernia for a long t aide she knows about that already. Course & Med Decision Making Course & Med Decision Making Pertinent Labs and Imaging studies reviewed. (See chart for details) []58-year-old female prior history of DVT on Xarelto, hypertension bipolar disorder presenting with multiple complaints headache left arm numbness intermittent as well as some lower abdominal discomfort she did have some tenderness on examination so we did a CT scan no evidence of acute diverticulitis on that. Patient had good body habitus I think a noncontrast should be adequate. White blood cell count was borderline urinalysis was negative we gave IV fluids and symptomatic treatment and she felt a lot better on reevaluation at 9 PM. There was no head trauma she is neurologically intact I don't think we need head imaging at this time. Return precautions discussed in detail and she voiced understanding of the instructions. Dragon Disclaimer Dragon Disclaimer This electronic medical record was generated, in whole or in part, using a voice recognition dictation system. Departure Departure: Impression: Primary Impression: Abdominal pain Disposition: HOME, SELF-CARE Condition: STABLE Patient Instructions: Abdominal Pain (Nonspecific) GERTRUDE CORLEY MD Nov 06, 2018 21:21
== END 2018-11-06 21:17 | disposition home or self-care (01) ==
LOC: ER 17:31
DX: R10.30 Lower abdominal pain, unspecified (principal); R19.7 Diarrhea, unspecified; R51 Headache; K21.9 Gastro-esophageal reflux disease without esophagitis; I10 Essential (primary) hypertension; Z90.49 Acquired absence of other specified parts of digestive tract; Z90.710 Acquired absence of both cervix and uterus; Z88.1 Allergy status to other antibiotic agents; Z88.0 Allergy status to penicillin
CPT/HCPCS: 36415; 74176; 80053; 81001; 84484; 85025; 93005; 96361; 96374; 96375; 99285; J2405; J3010; J7030

== ENCOUNTER 2019-04-12 09:56 | Emergency (ER) | payer MEDICARE ==
[~2019-04-12] VITALS: Ht 165.1 cm; Wt 115.0 kg
[~2019-04-12 09:56] MED LIST changes: -CLON0.5T11 PO; +CLON0.5T4 PO; -OXYB10TA2 PO; +OXYB10TA26 PO
[2019-04-12] MEDS ORDERED: IPRATRPIUM/ALBUTEROL 0.5/2.5MG 3 ML NEBU. ONE (10:07)
--- NOTE | 2019-04-12 10:12 | PHYS DOC ---
Past History Past Medical History: Anxiety, Bipolar, COPD, Depression, DVT, Other Past Surgical History: Appendectomy, Hysterectomy Smoking: Cigarettes Alcohol Use: None Drug Use: None Adult General Chief Complaint Chief Complaint: SHORTNESS OF BREATH HPI HPI Patient is a 58-year-old female who presents to the emergency department for evaluation. She states for the past 5 days, she's had nasal congestion, and a cough productive of white sputum and some shortness of breath. She reports a subjective fever but has not checked her temperature. She denies any discomfort or pain, other than discomfort in her ribs from coughing. She has not had any headache, vision changes, numbness, weakness, abdominal pain, nausea, or vomiting. There are no alleviating or exacerbating factors to her symptoms. Review of Systems Review of Systems Constitutional: Denies fever or chills [] Eyes: Denies change in visual acuity, redness, or eye pain [] HENT: Denies otalgia or sore throat [] Respiratory: As per history of present illness[] Cardiovascular: The patient denies any chest pain, palpitations, or orthopnea [] GI: Denies abdominal pain, nausea, vomiting, bloody stools or diarrhea [] : Denies dysuria or hematuria [] Musculoskeletal: Denies back pain or joint pain [] Integument: Denies rash or skin lesions [] Neurologic: Denies headache, focal weakness or sensory changes [] Endocrine: Denies polyuria or polydipsia [] All other systems were reviewed and found to be within normal limits, except as documented in this note. Current Medications Current Medications Current Medications Medications (Trade) Dose Ordered Sig/Fiorella Start Time Stop Time Status Last Admin Dose Admin Albuterol/ Ipratropium (Duoneb) 3 ml STK-MED ONCE 04/12/19 10:07 04/12/19 10:08 DC Allergies Allergies Allergies Coded Allergies Type Severity Reaction Last Updated Verified amoxicillin Allergy Intermediate Rash 05/16/14 Yes carbamazepine Allergy Intermediate 05/16/14 Yes penicillin G Allergy Intermediate Hives 05/16/14 Yes Uncoded Allergies Type Severity Reaction Last Updated Verified control Adverse Reaction Intermediate 05/16/14 Physical Exam Physical Exam PHYSICAL EXAM: CONSTITUTIONAL: Well developed, well nourished HEAD: normocephalic, atraumatic EENT: PERRL, EOMI. Conjunctivae normal color, sclerae non-icteric; moist mucous membranes. The oropharynx is unremarkable. NECK: Supple, non-tender; no meningismus. LUNGS: Very faint expiratory wheeze, otherwise Lungs CTA, breathing even and unlabored. Normal air movement. HEART: Regular rate and rhythm, no murmur CHEST: No deformity; non-tender ABDOMEN: The abdomen is soft, and non-tender, no masses or bruits. EXTREM: Normal ROM; no deformity, no calf tenderness. Normal pulses palpable in all extremities. There is no pedal edema. SKIN: No rash; no diaphoresis NEURO: Alert; normal speech and cognition; CN's grossly intact; strength grossly intact without focal deficit. BACK: No CVA TTP. Current Patient Data Lab Results Laboratory Tests Test 04/12/19 10:08 Influenza Type A (Rapid) Negative Influenza Type B (Rapid) Negative Current Medications Medications (Trade) Dose Ordered Sig/Fiorella Route PRN Reason Start Time Stop Time Status Last Admin Dose Admin Albuterol/ Ipratropium (Duoneb) 3 ml STK-MED ONCE .ROUTE 04/12/19 10:07 04/12/19 10:08 DC Albuterol/ Ipratropium (Duoneb) 3 ml 1X ONCE NEB 04/12/19 10:15 04/12/19 10:16 DC 04/12/19 10:12 EKG EKG [] Radiology/Procedures Radiology/Procedures PROCEDURE: CHEST PA & LATERAL Chest PA and lateral: Reason for examination: Cough. History of COPD/asthma. Comparison is made to previous study dated 10/19/2018. The heart size is normal. Mediastinum is unremarkable. Lung paz are clear. No acute bony abnormalities are seen. Impression: No acute cardiopulmonary disease.[] Course & Med Decision Making Course & Med Decision Making Pertinent Labs and Imaging studies reviewed. (See chart for details) [] Patient remains stable. I discussed test results, the need for close follow-up, and return precautions. Dragon Disclaimer Dragon Disclaimer This electronic medical record was generated, in whole or in part, using a voice recognition dictation system. Departure Departure: Impression: Primary Impression: Bronchitis Disposition: HOME, SELF-CARE Condition: STABLE Referrals: JEANETTE JOY MD (PCP) Patient Instructions: Bronchitis, Upper Respiratory Infection, Adult Scripts Benzonatate (TESSALON PERLE) 100 Mg Capsule 100 MG PO TID PRN for COUGH, #20 CAP Prov: LISBET JONES MD 04/12/19 Prednisone (PREDNISONE) 20 Mg Tablet 40 MG PO DAILY for - for 5 Days, #10 TAB Prov: LISBET JONES MD 04/12/19 LISBET JONES MD Apr 12, 2019 10:12
[2019-04-12] MEDS ORDERED: IPRATRPIUM/ALBUTEROL 0.5/2.5MG 3 ML NEBU. NEB ONE (10:15)
[2019-04-12 10:32] VITALS: BP 136/79
--- NOTE | 2019-04-12 10:36 | RAD ---
Chest PA and lateral: Reason for examination: Cough. History of COPD/asthma. Comparison is made to previous study dated 10/19/2018. The heart size is normal. Mediastinum is unremarkable. Lung paz are clear. No acute bony abnormalities are seen. Impression: No acute cardiopulmonary disease. Electronically signed by: Jo Gonzales MD (04/12/2019 10:33 AM) [id number]
[2019-04-12 10:55] LABS: INFLUENZA A PATIENT NEGATIVE (NEGATIVE); INFLUENZA B PATIENT NEGATIVE (NEGATIVE)
[2019-04-12] MEDS ORDERED: BENZ100C PO (11:03)
[2019-04-12] MEDS ORDERED: PRED20TA PO (11:03)
== END 2019-04-12 11:08 | disposition home or self-care (01) ==
LOC: ER 09:56
DX: J44.9 Chronic obstructive pulmonary disease, unspecified (principal); R50.9 Fever, unspecified; F41.9 Anxiety disorder, unspecified; F32.9 Major depressive disorder, single episode, unspecified; F17.210 Nicotine dependence, cigarettes, uncomplicated; Z86.718 Personal history of other venous thrombosis and embolism; Z90.89 Acquired absence of other organs; Z90.710 Acquired absence of both cervix and uterus; Z88.0 Allergy status to penicillin; Z88.1 Allergy status to other antibiotic agents; Z88.8 Allergy status to other drugs, medicaments and biological substances
CPT/HCPCS: 71046; 87804; 94640; 99285; J7620

== ENCOUNTER 2019-11-24 11:19 | Emergency (ER) | payer MEDICARE ==
[~2019-11-24] VITALS: Ht 165.1 cm; Wt 115.0 kg
[~2019-11-24 11:19] MED LIST changes: +BENZ100C PO; +PRED20TA PO
[2019-11-24] MEDS ORDERED: IPRATRPIUM/ALBUTEROL 0.5/2.5MG 3 ML NEBU. NEB ONE ×2 (11:45→13:30)
[2019-11-24] MEDS ORDERED: DEXAMETHASONE SOD PHOS 10 MG/ML VIAL. IV ONE (11:45)
[2019-11-24 12:09] LABS: BASO % 0 % (0-3); EOS # 0.2 x10^3/uL (0.0-0.7); EOS % 2 % (0-3); HEMATOCRIT 38.3 % (36.0-47.0); HEMOGLOBIN 11.9 g/dL (12.0-15.5); LYMPH # 1.4 x10^3/uL (1.0-4.8); LYMPH % 14 % (24-48); MEAN CORPUSCULAR HEMOGLOBIN 24 pg (25-35); MEAN CORPUSCULAR HGB CONC 31 g/dL (31-37); MEAN CORPUSCULAR VOLUME 76 fL (79-100); MONO # 0.8 x10^3/uL (0.0-1.1); MONO % 8 % (0-9); NEUT # 7.6 x10^3uL (1.8-7.7); NEUT % 76 % (31-73); PLATELET COUNT 287 x10^3/uL (140-400); RED BLOOD COUNT 5.01 x10^6/uL (3.50-5.40); WHITE BLOOD COUNT 10.1 x10^3/uL (4.0-11.0)
[2019-11-24 12:14] LABS: CALCIUM 8.9 mg/dL (8.5-10.1); CREATININE 0.9 mg/dL (0.6-1.0); GFR 64.3; POTASSIUM 3.8 mmol/L (3.5-5.1)
[2019-11-24 12:20] LABS: ALBUMIN 3.3 g/dL (3.4-5.0); ALBUMIN/GLOBULIN RATIO 0.8 (1.0-1.7); TOTAL BILIRUBIN 0.3 mg/dL (0.2-1.0); TOTAL PROTEIN 7.3 g/dL (6.4-8.2)
--- NOTE | 2019-11-24 12:20 | PHYS DOC ---
Past History Past Medical History: Anxiety, Bipolar, COPD, Depression, DVT, Other Past Surgical History: Appendectomy, Hysterectomy Smoking: Cigarettes Alcohol Use: None Drug Use: None Adult General Chief Complaint Chief Complaint: SHORTNESS OF BREATH HPI HPI Patient is a 59-year-old female presents the emergency room complaining of shortness of breath for the last month. Patient states that she was on steroids 3 weeks ago which helped for a little while and then her shortness of breath got worse. She does have increased cough and sputum production. She is got some chest tightness. She denies any sharp chest pain. She has been using her inhalers at home without relief. She denies any fevers. This feels similar to previous COPD exacerbations. Review of Systems Review of Systems General: Denies fever, chills, sweats, fatigue Eyes: Denies drainage, blurred vision, eye redness HENT: Denies rhinorrhea, sore throat, earache Respiratory: Reports cough, shortness of breath, wheezing, chest tightness Cardiac: Denies edema, palpitations, chest pain GI: Denies abdominal pain, Nausea, vomiting MSK: Denies back pain, neck pain Skin: Denies rash, jaundice Neuro: Denies headache, dizziness Psychiatric: Denies SI/HI Current Medications Current Medications Current Medications Medications (Trade) Dose Ordered Sig/Fiorella Start Time Stop Time Status Last Admin Dose Admin Albuterol/ Ipratropium (Duoneb) 3 ml 1X ONCE 11/24/19 11:45 11/24/19 11:46 DC 11/24/19 11:47 3 ML Dexamethasone Sodium Phosphate (Decadron) 10 mg 1X ONCE 11/24/19 11:45 11/24/19 11:46 DC 11/24/19 11:47 10 MG Allergies Allergies Allergies Coded Allergies Type Severity Reaction Last Updated Verified amoxicillin Allergy Intermediate Rash 05/16/14 Yes carbamazepine Allergy Intermediate 05/16/14 Yes penicillin G Allergy Intermediate Hives 05/16/14 Yes Uncoded Allergies Type Severity Reaction Last Updated Verified control Adverse Reaction Intermediate 05/16/14 Physical Exam Physical Exam General: Awake, alert, NAD. Well Nourished, well hydrated. Cooperative HEENT: Atraumatic, EOMI, PERRL, airway patent, moist oral mucosa Neck: Supple, trachea midline Respiratory: Increased work of breathing, wheezing, no crackles CV: RRR, no murmur, cap refill <2 GI: Soft, nondistended, nontender, no masses MSK: No obvious deformities Skin: Warm, dry, intact Neuro: A&O x3, speech NL, sensory and motor grossly intact, no focal deficits Psych: Normal affect, normal mood, not suicidal or homicidal Current Patient Data Vital Signs Vital Signs Date Time Temp Pulse Resp B/P (MAP) Pulse Ox O2 Delivery O2 Flow Rate FiO2 11/24/19 11:22 98.6 78 34 143/82 (102) 98 11/24/19 11:19 Room Air EKG EKG [] Radiology/Procedures Radiology/Procedures [] Course & Med Decision Making Course & Med Decision Making Pertinent Labs and Imaging studies reviewed. (See chart for details) Patient is 59-year-old female presents to the emergency room with shortness of breath, increased cough, increased sputum production. Patient's presentation is concerning for COPD exacerbation. Differential diagnosis also includes pneumonia. Patient was given steroids, DuoNeb treatments for symptoms. Shortness of breath work-up was ordered including CBC, BMP, BNP, troponin, EKG, chest x-ray. Patient is feeling significantly better after 2 breathing treatments. She would like to go home. We have discussed that she should return if she is having significant shortness of breath again. She will be placed on a prednisone taper. Patient's test results and vitals while in the ED were fully reviewed and discussed with the patient. Patient is stable and at this time does not need admission to the hospital. We have discussed strict return precautions and the importance of following up with their Primary Care Physician. Patient stated understanding and was given an opportunity to ask any questions. Patient is in agreement with plan. Dragon Disclaimer Dragon Disclaimer This electronic medical record was generated, in whole or in part, using a voice recognition dictation system. Departure Departure: Impression: Primary Impression: COPD exacerbation Disposition: 01 HOME/RESIDENCE PRIOR TO ADM Condition: STABLE Referrals: JEANETTE JOY MD (PCP) Patient Instructions: Chronic Obstructive Pulmonary Disease Exacerbation Scripts Prednisone (PREDNISONE) 10 Mg Tablet 10 MG PO UD for PREDNISONE TAPER, #39 TAB 0 Refills Take 5 tablets by mouth twice a day for 5 days, then take 4 tablets by mouth twice a day for 3 days, then take 3 tablet by mouth twice a day for 3 days, then take 2 tablet by mouth daily x 3 days, then stop. Prov: SHANA DURAN MD 11/24/19 Justification of Admission: Justification of Admission: Justification of Admission Dx: N/A SHANA DURAN MD Nov 24, 2019 12:20
--- NOTE | 2019-11-24 13:14 | RAD ---
Examination: CHEST AP ONLY History: Reason: SHORTNESS OF BREATH / Comparison: 04/12/2019. Findings: AP portable upright frontal view of the chest was obtained. The cardiomediastinal silhouette is borderline and this may be in part technique related. Lungs are clear. There is no pneumothorax. No pleural effusion is appreciated. No acute bone abnormality. Small hiatal hernia IMPRESSION: No acute cardiopulmonary process. Small hiatal hernia. Electronically signed by: Germain Adame MD (11/24/2019 1:11 PM) [id number]
[2019-11-24] MEDS ORDERED: PRED-220 PO (15:23)
[2019-11-24 15:25] VITALS: BP 156/99
--- NOTE | 2019-11-26 07:01 | EKG ---
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
== END 2019-11-24 15:38 | disposition home or self-care (01) ==
LOC: ER 11:19
DX: J44.1 Chronic obstructive pulmonary disease with (acute) exacerbation (principal); F41.9 Anxiety disorder, unspecified; F31.9 Bipolar disorder, unspecified; F17.210 Nicotine dependence, cigarettes, uncomplicated; Z86.718 Personal history of other venous thrombosis and embolism; Z88.1 Allergy status to other antibiotic agents; Z88.0 Allergy status to penicillin; Z88.8 Allergy status to other drugs, medicaments and biological substances
CPT/HCPCS: 36415; 71045; 80053; 84484; 85025; 93005; 94640; 96374; 99285; J1100

== ENCOUNTER 2019-11-26 09:01 | Inpatient (IN) | payer MEDICARE ==
[2019-11-26] VITALS (8 sets, daily range): BP systolic 100–151; BP diastolic 46–84
[~2019-11-26] VITALS: Ht 165.1 cm; Wt 116.6 kg
[~2019-11-26 09:01] MED LIST changes: +PRED-220 PO
[2019-11-26] MEDS ORDERED: cefTRIAXone SODIUM 1 GM VIAL ONE (09:36)
[2019-11-26] MEDS ORDERED: IV NORMAL SALINE 100ML 100 ML ONE (09:36)
[2019-11-26] MEDS ORDERED: DEXAMETHASONE SOD PHOS 10 MG/ML VIAL. IV ONE (09:45)
[2019-11-26] MEDS ORDERED: IPRATRPIUM/ALBUTEROL 0.5/2.5MG 3 ML NEBU. NEB ONE ×2 (09:45→11:00)
--- NOTE | 2019-11-26 09:51 | RAD ---
EXAM: CHEST AP ONLY INDICATION: Reason: sob / Spl. Instructions: / History: . TECHNIQUE: Single view COMPARISON: None 11/24/2019 chest x-ray FINDINGS: The heart size is normal. The great vessels appear unremarkable. There is no hilar or mediastinal mass. The lungs are well aerated.. There is no pleural effusion or pneumothorax. There are no significant osseous abnormalities. IMPRESSION: No active cardiopulmonary disease. Electronically signed by: Braulio Caraballo MD (11/26/2019 9:49 AM) [id number]
[2019-11-26 10:04] LABS: BASO % 0 % (0-3); EOS % 0 % (0-3); HEMATOCRIT 39.7 % (36.0-47.0); HEMOGLOBIN 12.4 g/dL (12.0-15.5); LYMPH % 5 % (24-48); MEAN CORPUSCULAR HEMOGLOBIN 24 pg (25-35); MEAN CORPUSCULAR HGB CONC 31 g/dL (31-37); MEAN CORPUSCULAR VOLUME 76 fL (79-100); MONO # 0.9 x10^3/uL (0.0-1.1); MONO % 5 % (0-9); NEUT # 17.4 x10^3uL (1.8-7.7); NEUT % 90 % (31-73); PLATELET COUNT 349 x10^3/uL (140-400); RED BLOOD COUNT 5.25 x10^6/uL (3.50-5.40); WHITE BLOOD COUNT 19.3 x10^3/uL (4.0-11.0)
--- NOTE | 2019-11-26 10:11 | PHYS DOC ---
Past History Past Medical History: Arthritis, Bipolar, COPD, Depression Past Surgical History: Appendectomy, Hysterectomy Smoking: Cigarettes Additional Smoking Information: PATIENT STATES SHE QUIT SMOKING 2 DAYS AGO Alcohol Use: None Drug Use: None Adult General Chief Complaint Chief Complaint: SHORTNESS OF BREATH HPI HPI Patient is a 59-year-old female who presents to the emergency room complaining of wheezing and shortness of breath. Patient was here two days ago with shortness of breath and was placed on steroids for exacerbation. She has been having shortness of breath for the last month which has been waxing and waning. She ran out of her inhaler yesterday and since then her shortness of breath has gotten significantly worse. She denies any significant sputum production. She has not had any chest pain, fever, URI symptoms, abdominal symptoms. Review of Systems Review of Systems General: Denies fever, chills, sweats, fatigue Eyes: Denies drainage, blurred vision, eye redness HENT: Denies rhinorrhea, sore throat, earache Respiratory: Reports cough, shortness of breath, wheezing Cardiac: Denies edema, palpitations, chest pain GI: Denies abdominal pain, Nausea, vomiting MSK: Denies back pain, neck pain Skin: Denies rash, jaundice Neuro: Denies headache, dizziness Psychiatric: Denies SI/HI Current Medications Current Medications Current Medications Medications (Trade) Dose Ordered Sig/Fiorella Start Time Stop Time Status Last Admin Dose Admin Albuterol/ Ipratropium (Duoneb) 3 ml 1X ONCE 11/26/19 09:45 11/26/19 09:46 DC 11/26/19 09:50 3 ML Ceftriaxone Sodium 1 gm/ Sodium Chloride 50 ml @ 100 mls/hr 1X ONCE 11/26/19 09:45 11/26/19 10:14 11/26/19 09:44 100 MLS/HR Ceftriaxone Sodium (Rocephin) 1 gm STK-MED ONCE 11/26/19 09:36 11/26/19 09:36 DC Dexamethasone Sodium Phosphate (Decadron) 10 mg 1X ONCE 11/26/19 09:45 11/26/19 09:46 DC 11/26/19 09:43 10 MG Sodium Chloride 100 ml @ As Directed STK-MED ONCE 11/26/19 09:36 11/26/19 09:37 DC Allergies Allergies Allergies Coded Allergies Type Severity Reaction Last Updated Verified amoxicillin Allergy Intermediate Rash 05/16/14 Yes carbamazepine Allergy Intermediate 05/16/14 Yes penicillin G Allergy Intermediate Hives 05/16/14 Yes Uncoded Allergies Type Severity Reaction Last Updated Verified control Adverse Reaction Intermediate 05/16/14 Physical Exam Physical Exam General: Awake, alert, moderate distress. Well Nourished, well hydrated. Cooperative HEENT: Atraumatic, EOMI, PERRL, airway patent, moist oral mucosa Neck: Supple, trachea midline Respiratory: Increased work of breathing, diffuse wheezing, tachypnea CV: RRR, no murmur, cap refill <2 GI: Soft, nondistended, nontender, no masses MSK: No obvious deformities Skin: Warm, dry, intact Neuro: A&O x3, speech NL, sensory and motor grossly intact, no focal deficits Psych: Normal affect, normal mood, not suicidal or homicidal Current Patient Data Vital Signs Vital Signs Date Time Temp Pulse Resp B/P (MAP) Pulse Ox O2 Delivery O2 Flow Rate FiO2 11/26/19 09:16 97.7 64 25 149/69 (95) 99 Nasal Cannula 6.0 EKG EKG [] Radiology/Procedures Radiology/Procedures [] Course & Med Decision Making Course & Med Decision Making Pertinent Labs and Imaging studies reviewed. (See chart for details) Patient is a 59 year old female who presents to the Emergency Room complaining of SOB. Patient appears to be having acute COPD exacerbation. I did evaluate the patient 2 days ago while she was here. At that time she looks significantly better than she does today. She continues to not have productive cough or fever. This is likely COPD. She ran out of her inhaler yesterday. We will do DuoNeb treatments and steroids here in the emergency room. Patient will need admission. 1053 Patient is significantly improved with duonebs. Continues to require oxygen. Will admit. Dragon Disclaimer Dragon Disclaimer This electronic medical record was generated, in whole or in part, using a voice recognition dictation system. Departure Departure: Impression: Primary Impression: Acute exacerbation of chronic obstructive pulmonary disease (COPD) Disposition: HOME/RESIDENCE PRIOR TO ADM Condition: STABLE Referrals: JEANETTE JOY MD (PCP) Justification of Admission: Justification of Admission: Justification of Admission Dx: Yes Acute COPD Exacerbation: Acute COPD Exacerbation SHANA DURAN MD Nov 26, 2019 10:10
[2019-11-26 10:14] LABS: CALCIUM 8.9 mg/dL (8.5-10.1); GFR 56.9; POTASSIUM 4.1 mmol/L (3.5-5.1)
[2019-11-26 10:27] LABS: ALBUMIN 3.6 g/dL (3.4-5.0); TOTAL BILIRUBIN 0.6 mg/dL (0.2-1.0); TOTAL PROTEIN 7.1 g/dL (6.4-8.2)
--- NOTE | 2019-11-26 12:07 | HP ---
ADMIT DATE: 11/26/2019 ATTENDING PHYSICIAN: Dr. Crandall. CHIEF COMPLAINT: Shortness of breath. HISTORY OF PRESENT ILLNESS: The patient is a 59-year-old female admitted through the ED with worsening dyspnea and wheezing. She was given several breathing treatments and a dose of steroids. She has failed outpatient therapy. Her chest x-ray is clear. Unfortunately, she is under a lot of stress and continues to smoke quite a bit. She is admitted then with an exacerbation of chronic obstructive pulmonary disease. She has been chronically short of breath for the last month. There is no significant sputum production. No fevers. There is no COVID exposure; however, she is a COVID pending patient at this time. PAST MEDICAL HISTORY: Significant for bipolar disorder. She has been disabled since 2003. COPD, continued tobacco use, depression, anxiety and degenerative arthritis along with morbid obesity. PAST SURGICAL HISTORY: Appendectomy, hysterectomy for uterine prolapse. SOCIAL HISTORY: She smokes a pack of cigarettes daily for many years. She does not drink any alcohol or recreational drugs. She also ran out of her inhaler at home, which aggravated the issue. FAMILY HISTORY: Both mom and dad are alive at age 83. Mom has heart disease. Dad had colon cancer. She has a son who lives with them who is disabled. He has schizoaffective disorder. She is . lives at home too. ALLERGIES: Include AMOXICILLIN, CONTROL PILLS, CARBAMAZEPINE, PENICILLIN G, exact reaction is unclear. CURRENT MEDICATIONS: Include the following: She was given ceftriaxone and albuterol. Her home meds include Abilify 10 mg daily, Tessalon Perles, Celexa 20 mg daily, clonazepam 0.5 mg as needed, Lomotil, famotidine, guaifenesin, levofloxacin tablets, lisinopril, hydrochlorothiazide, Flagyl, prednisone, Xarelto, and Detrol. REVIEW OF SYSTEMS: Significant for generalized anxiety, stress, continued tobacco use. No recent exposure. No nausea, vomiting. All other systems reviewed and turned to be negative. PHYSICAL EXAMINATION: GENERAL: When I saw her, this is a pleasant, middle-aged female. INITIAL VITAL SIGNS: Showed a blood pressure of 149/69, pulse is 64 and regular, temperature 97.7 degrees Fahrenheit, oxygen saturation 99% on 3 liters of nasal cannula. HEENT: Head is without trauma. Pupils are reactive. Sclerae nonicteric. Oropharynx clear. NECK: Supple, no bruits. LUNGS: Diffuse wheezing bilaterally. CARDIOVASCULAR: Showed regular heart tones. No gallops. Peripheral pulses are palpable and full. ABDOMEN: Soft, scaphoid. No organomegaly. Bowel sounds are hypoactive. EXTREMITIES: Showed no cyanosis or edema. NEUROLOGIC: Focally intact. SKIN: Somewhat flushed and warm. PERTINENT LABORATORY AND X-RAY STUDIES: Chest x-ray showed no evidence of acute infiltrate. Heart size is within range. White count is elevated due to steroids 19,300. Sodium 128 mEq, potassium 4.1, chloride 90, creatinine is 1.0. Troponin is negative for coronary ischemia. ASSESSMENT: 1. A 59-year-old female with an exacerbation of chronic obstructive pulmonary disease. 2. Continued tobacco addiction. 3. Major depression with anxiety with a history of bipolar disorder. 4. Hypertension. 5. Mild hyponatremia due to diuretic use. PLAN: 1. Admit to the inpatient unit. 2. Intravenous steroids. 3. Albuterol will be continued. 4. She will be with quarantine with COVID-19 precautions until swab returns. 5. Continue home meds. 6. I will hold her hydrochlorothiazide part with recheck chemistries. BLAIRE CRANDALL MD DR: JACY/digna JOB#: [id number] / [id number] JEANETTE Braxton MD
[2019-11-26] MEDS ORDERED: CODEINE PHOSPHATE PO PRN (13:45)
[2019-11-26] MEDS ORDERED: clonazePAM 0.5 MG TABLET PO PRN (13:45)
[2019-11-26] MEDS ORDERED: GUAIFENESIN PO PRN (13:45)
[2019-11-26] MEDS ORDERED: ACETAMINOPHEN 325 MG TABLET PO PRN (13:45)
[2019-11-26] MEDS ORDERED: LISI-334 PO (13:52)
[2019-11-26 14:00] LABS: % LYMPHS 8 % (24-48); % MONOS 4 % (0-10); % SEGS 88 % (35-66)
[2019-11-26] MEDS: methylPREDNISolone SOD SUCC PF 125 MG/2 ML VIAL. IV SCH ×2 (14:00→22:44)
[2019-11-26] MEDS: OXYBUTYNIN CHLORIDE 5 MG TABLET PO SCH ×2 (14:00→21:00)
[2019-11-26 14:01] LABS: PLT ESTIMATE ADEQUATE (ADEQUATE)
[2019-11-26 14:02] LABS: HYPOCHROMIA SLIGHT
[2019-11-26 14:03] LABS: ANISOCYTOSIS SLIGHT
--- NOTE | 2019-11-26 15:00 | NUR ---
PATIENT WAS ADMITTED TO THE UNIT VIA GURNEY TRANSPORTED BY EMS. PATIENT IS ON 3L NC AND IS AUDIBLY WHEEZING FROM DOORWAY. PATIENT IS IN MODERATE RESPIRATORY DISTRESS. VITALS SIGNS OBTAINED. OXYGEN SATURATION IS 94% ON 3L NC AND RR 29. PATIENT WAS ASSESSED AND ADMISSION PROCESS WAS STARTED. DR CRANDALL WAS CONTACTED AND INFORMED OF PATIENTS ARRIVAL AND CONDITION. ORDERS WERE RECEIVED AND INPUT. A SHORT WHILE LATER PATIENT CALLED FOR THE NURSE STATING SHE COULDN'T BREATH OR CATCH HER BREATH. UPON ASSESSMENT PATIENT IS IN SEVERE RESPIRATORY DISTRESS PATIENT IS TACHYPNEIC, WHEEZING, USING ACCESSORY MUSCLES FOR BREATHING, UNABLE TO SPEAK FULL SENTENCES, ONE OR TWO WORDS ONLY AT A TIME, PATIENT IS SITTING UPRIGHT AND LEANING OVER TO SIDE OF BED SEEKING RELIEF FROM SOA. PATIENT IS AGITATED, RESTLESS, AND IN FEAR. VITALS SIGNS ARE OBTAINED AND OXYGEN SATS ARE STILL IN LOWER 90'S RANGE ON 3L NC WITH A RR OF 32. THIS RN ASK FOR RT TO BE CALLED STAT FOR ASSISTANCE. THIS RN ATTEMPTED TO ASSIST THE PATIENT WITH USE OF THE COMBIVENT INHALER BUT PT WAS NOT ABLE TO INHALE THE MEDICATION CORRECTLY DUE TO SOA AND INCREASED RR. THIS RN THEN ADMINISTERED 2 NEBULIZING TREATMENTS TO THE PATIENT BACK TO BACK IN AN ATTEMPT TO RELIEVE PTS SYMPTOMS. SOME RELIEF WAS OBTAINED BUT ONLY SLIGHTLY. THE PHYSICIAN WAS CALLED TO INFORM OF PATIENTS CHANGE IN STATUS. ADDITIONAL TREATMENT ORDERS WERE RECEIVED ALONG WITH THE PHYSICIAN REQUESTING THAT THE PATIENT BE TRANSFERRED TO THE ICU FOR A HIGHER LEVEL OF CARE AND OBSERVATION. PATIENT WAS TRANSFERRED TO ICU ROOM 2 AND REPORT WAS GIVEN TO ASTRID KEENE.
[2019-11-26] MEDS: IPRATROPIUM/ALBUTEROL 20/100mcg/INH INHALER. INH SCH ×2 (16:00→20:00)
[2019-11-26] MEDS ORDERED: IPRATRPIUM/ALBUTEROL 0.5/2.5MG 3 ML NEBU. NEB SCH (16:00)
[2019-11-26] MEDS ORDERED: methylPREDNISolone SOD SUCC PF 125 MG/2 ML VIAL. IV ONE (17:00)
--- NOTE | 2019-11-26 19:32 | NUR ---
The patient, JULES DAVALOS, 59 y/o, F admitted by BLAIRE CRANDALL MD, was given written information regarding hospital policies, unit procedures and contact persons. Health history and home medications were reviewed with patient. Bed locked and in lowest position, call light within reach. Valuables were checked and left in room with patient.
--- NOTE | 2019-11-26 19:34 | NUR ---
Call placed to , Beau Arciniega, to inform him patient was transferred to ICU.
[2019-11-26 19:52] LABS: BGAS PH 7.42 (7.35-7.45)
[2019-11-26] MEDS: FAMOTIDINE 20 MG TABLET PO SCH (21:00)
[2019-11-26] MEDS ORDERED: FLU VACC QS 2020-21(6MOS+)/PF 0.5 ML SYRINGE. VAX IM ONE (21:00)
[2019-11-26] MEDS: guaiFENesin/CODEINE 100mg/10mg 5 ML LIQUID PO PRN (23:55)
[2019-11-27] VITALS (13 sets, daily range): BP systolic 106–176; BP diastolic 56–96
[2019-11-27] MEDS: ACETAMINOPHEN 325 MG TABLET PO PRN (03:59)
[2019-11-27] MEDS: methylPREDNISolone SOD SUCC PF 125 MG/2 ML VIAL. IV SCH ×3 (05:59→21:38)
[2019-11-27] MEDS: IPRATROPIUM/ALBUTEROL 20/100mcg/INH INHALER. INH SCH ×3 (07:45→14:17)
--- NOTE | 2019-11-27 07:45 | NUR ---
pt can be heard wheezing from the doorway. This RN assisted pt with using the combivent respimat inhaler. After several tries pt can't use correctly. We did manage to get 2 inhalations in. Will discuss with Dr. Palomo on rounds
[2019-11-27] MEDS: NICOTINE 21MG PATCH. TD SCH (08:55)
[2019-11-27] MEDS: LACTOBACILLUS RHAMNOSUS GG 1 CAPSULE. PO SCH ×2 (08:55→21:37)
[2019-11-27] MEDS: CITALOPRAM 20 MG TABLET. PO SCH (08:55)
[2019-11-27] MEDS: LEVOTHYROXINE 75 MCG TABLET PO SCH (08:55)
[2019-11-27] MEDS: OXYBUTYNIN CHLORIDE 5 MG TABLET PO SCH ×3 (08:55→21:38)
[2019-11-27] MEDS: ARIPiprazole 10 MG TABLET PO SCH (08:55)
[2019-11-27] MEDS: FAMOTIDINE 20 MG TABLET PO SCH ×2 (08:55→21:38)
[2019-11-27] MEDS ORDERED: NON FORMULARY ITEM (Tolterodine Tartrate (Detrol La) 1 CAP) PO SCH (09:00)
--- NOTE | 2019-11-27 09:30 | NUR ---
Pt's covid swab is negative, Dr. Palomo gave orders that we can remove pt from isolations. Also since swab was negative, pt was changed back to duoneb, since pt can't use inhaler correctly.
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
[2019-11-27] MEDS: IPRATRPIUM/ALBUTEROL 0.5/2.5MG 3 ML NEBU. NEB SCH ×4 (10:29→20:25)
--- NOTE | 2019-11-27 11:00 | NUR ---
pt has had some improvement in wheezing, this RN has done a lot of education in regards to pursed lip breathing, relaxation techniques. Pt gets very sob with minimal exertion of getting out of bed to use commode. Will CTM, pt is drinking a lot of water to thin secretions, pt is now able to cough some phlegm out.
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
[2019-11-27] MEDS: ALBUTEROL SULFATE 2.5 MG/3 ML NEBU. NEB PRN (16:30)
[2019-11-27] MEDS: MELATONIN 3 MG TABLET PO PRN (21:38)
[2019-11-28] MEDS: IPRATRPIUM/ALBUTEROL 0.5/2.5MG 3 ML NEBU. NEB SCH ×4 (05:20→20:52)
[2019-11-28] MEDS: methylPREDNISolone SOD SUCC PF 125 MG/2 ML VIAL. IV SCH ×2 (06:28→20:22)
[2019-11-28 06:39] VITALS: BP 133/74
[2019-11-28 06:50] LABS: CALCIUM 8.7 mg/dL (8.5-10.1); GFR 56.9; POTASSIUM 4.2 mmol/L (3.5-5.1)
[2019-11-28] MEDS: LEVOTHYROXINE 75 MCG TABLET PO SCH (08:05)
[2019-11-28] MEDS: FAMOTIDINE 20 MG TABLET PO SCH ×2 (08:27→20:22)
[2019-11-28] MEDS: guaiFENesin/CODEINE 100mg/10mg 5 ML LIQUID PO PRN ×3 (08:27→21:03)
[2019-11-28] MEDS: OXYBUTYNIN CHLORIDE 5 MG TABLET PO SCH ×3 (08:27→20:22)
[2019-11-28] MEDS: CITALOPRAM 20 MG TABLET. PO SCH (08:28)
[2019-11-28] MEDS: LACTOBACILLUS RHAMNOSUS GG 1 CAPSULE. PO SCH ×2 (08:28→20:22)
[2019-11-28] MEDS: NICOTINE 21MG PATCH. TD SCH (08:28)
[2019-11-28] MEDS: ARIPiprazole 10 MG TABLET PO SCH (08:29)
--- NOTE | 2019-11-28 10:31 | PN ---
DATE: 11/28/2019 ATTENDING PHYSICIAN: Dr. Crandall. CHIEF COMPLAINT: Shortness of breath. SUBJECTIVE: The patient is less dyspneic this morning. She is out of bed. She is in a chair. She ate breakfast. I took her oxygen off and got an adequate room air saturation. She remains quite anxious. She had several questions, which we discussed. OBJECTIVE FINDINGS: VITAL SIGNS: Blood pressure today is 133/74 mmHg. Oxygen saturations were 95%. Taken her off the oxygen, we got a 94% reading on room air. She is afebrile. HEENT: Head is without trauma. Pupils are reactive. Sclerae are nonicteric. Oropharynx is clear. NECK: Supple, no bruits. LUNGS: Diffuse wheezing bilaterally, but improved. CARDIOVASCULAR: Showed regular heart tones. No gallops. ABDOMEN: Soft, obese, protuberant. No organomegaly. EXTREMITIES: Showed no cyanosis or edema. NEUROLOGIC: Focally intact. Speech is fluent. SKIN: Warm and dry. AFFECT: Very anxious. LABORATORY STUDIES: Her nonfasting blood sugar is up a bit at 177 mg/dL. Electrolytes are within normal range. ASSESSMENT: 1. A 59-year-old female with [id number] respiratory failure. 2. Exacerbation of chronic obstructive pulmonary disease. 3. Tobacco addiction. 4. Hyperglycemia due to the glucocorticoid effects of high-dose steroids. 5. Underlying bipolar disorder. 6. Essential hypertension. 7. Hyponatremia due to diuretics corrected. PLAN: 1. Decrease steroids to b.i.d. 2. Continue empiric antibiotics. 3. Continue nebulizer therapy. 4. Supplemental oxygen has been removed and be used p.r.n. 5. We held her Xarelto, as she is 2 years out from her deep vein thrombosis and it was not needed anymore. 6. Hold hydrochlorothiazide. 7. Follow up chemistries. 8. We will increase her Klonopin dosage to b.i.d. scheduled. BLAIRE CRANDALL MD DR: JACY/digna JOB#: [id number] / [id number]
[2019-11-28] MEDS: ACETAMINOPHEN 325 MG TABLET PO PRN ×2 (10:41→20:22)
[2019-11-28] MEDS: clonazePAM 0.5 MG TABLET PO SCH ×2 (10:41→21:03)
[2019-11-28 10:58] VITALS: BP 108/60
[2019-11-28 17:59] VITALS: BP 132/66
[2019-11-28] MEDS: MELATONIN 3 MG TABLET PO PRN (21:03)
[2019-11-29] MEDS: ACETAMINOPHEN 325 MG TABLET PO PRN ×3 (02:05→16:04)
[2019-11-29 02:11] VITALS: BP 131/67
[2019-11-29] MEDS: IPRATRPIUM/ALBUTEROL 0.5/2.5MG 3 ML NEBU. NEB SCH ×4 (05:33→20:18)
[2019-11-29 05:55] VITALS: BP 134/68
[2019-11-29] MEDS: LEVOTHYROXINE 75 MCG TABLET PO SCH (06:23)
[2019-11-29] MEDS: clonazePAM 0.5 MG TABLET PO SCH ×2 (06:23→18:56)
[2019-11-29] MEDS: FAMOTIDINE 20 MG TABLET PO SCH ×2 (09:21→20:40)
[2019-11-29] MEDS: LACTOBACILLUS RHAMNOSUS GG 1 CAPSULE. PO SCH ×2 (09:21→20:40)
[2019-11-29] MEDS: CITALOPRAM 20 MG TABLET. PO SCH (09:21)
[2019-11-29] MEDS: ARIPiprazole 10 MG TABLET PO SCH (09:25)
[2019-11-29] MEDS: NICOTINE 21MG PATCH. TD SCH (09:25)
[2019-11-29] MEDS: OXYBUTYNIN CHLORIDE 5 MG TABLET PO SCH ×3 (09:25→20:40)
[2019-11-29] MEDS: methylPREDNISolone SOD SUCC PF 125 MG/2 ML VIAL. IV SCH (09:26)
[2019-11-29] MEDS: guaiFENesin/CODEINE 100mg/10mg 5 ML LIQUID PO PRN ×3 (09:26→23:58)
--- NOTE | 2019-11-29 09:35 | PN ---
DATE: 11/29/2019 ATTENDING PHYSICIAN: Dr. Crandall. CHIEF COMPLAINT: Shortness of breath. SUBJECTIVE: The patient is doing better. Wheezing is much less pronounced and almost resolved. She is eating well. She has no new complaints. OBJECTIVE: VITAL SIGNS: Blood pressure today is 134/68 mmHg, pulse 80 and regular, temperature 97.1 degrees Fahrenheit, oxygen saturation 94% on room air. HEENT: Head is without trauma. Pupils are reactive. Sclerae nonicteric. Oropharynx clear. NECK: Supple. No stridor. LUNGS: A very very minimal residual wheezing in the upper airways, otherwise very good air movement. CARDIOVASCULAR: Showed regular heart tones. No gallops. ABDOMEN: Soft, obese, protuberant. No organomegaly. Normal bowel sounds. EXTREMITIES: Without cyanosis, no edema. NEUROLOGIC: Focally intact. SKIN: Warm and dry. ASSESSMENT: 1. A 56-year-old female with [id number] respiratory failure, improved. 2. Exacerbation of chronic obstructive pulmonary disease. 3. Continued tobacco addiction. 4. Hyperglycemia due to steroids. 5. Underlying bipolar disorder. 6. Essential hypertension. 7. Hyponatremia due to diuretics, corrected. PLAN: 1. Decrease steroids to once a day. 2. Continue empiric antibiotics one more day. 3. Nebulizer therapy. 4. Diet as tolerated. 5. Strong encouragement to quit smoking, whether or not she will remain is to be seen. 6. Tentative discharge plans for tomorrow. BLAIRE CRANDALL MD DR: JACY/digna JOB#: [id number] / [id number]
[2019-11-29 13:35] VITALS: BP 114/69
[2019-11-29] MEDS ORDERED: POLYETHYLENE GLYCOL 3350 17 GM PACKET. PO PRN (17:15)
--- NOTE | 2019-11-29 17:26 | NUR ---
Patient was on room air for most of the day, and was able to recover after coughing fits without supplemental oxygen. This afternoon though, she took a shower and was able to get to the shower with mild dyspnea. But while she was in the shower her dyspnea worsened and she required supplemental oxygen via NC 3L to finish her shower and get back to her room. She was able to titrate down to RA within 30min and has remained on room air since. She continues to be dyspnic with exertion greater than the distance in hospital room.
[2019-11-29 17:57] VITALS: BP 143/76
[2019-11-29 22:08] VITALS: BP 159/83
[2019-11-30] MEDS: ACETAMINOPHEN 325 MG TABLET PO PRN (02:22)
[2019-11-30] MEDS: ALBUTEROL SULFATE 2.5 MG/3 ML NEBU. NEB PRN (04:44)
[2019-11-30] MEDS: IPRATRPIUM/ALBUTEROL 0.5/2.5MG 3 ML NEBU. NEB SCH (05:32)
[2019-11-30 06:12] VITALS: BP 113/60
[2019-11-30] MEDS ORDERED: methylPREDNISolone SOD SUCC PF 125 MG/2 ML VIAL. IV SCH (09:00)
[2019-11-30] MEDS ORDERED: IPRATROPIUM/ALBUTEROL 20/100mcg/INH INHALER. INH SCH (09:00)
[2019-11-30] MEDS: clonazePAM 0.5 MG TABLET PO SCH (09:21)
[2019-11-30] MEDS: FAMOTIDINE 20 MG TABLET PO SCH (09:21)
[2019-11-30] MEDS: ARIPiprazole 10 MG TABLET PO SCH (09:22)
[2019-11-30] MEDS: CITALOPRAM 20 MG TABLET. PO SCH (09:22)
[2019-11-30] MEDS: NICOTINE 21MG PATCH. TD SCH (09:22)
[2019-11-30] MEDS: LACTOBACILLUS RHAMNOSUS GG 1 CAPSULE. PO SCH (09:22)
[2019-11-30] MEDS: OXYBUTYNIN CHLORIDE 5 MG TABLET PO SCH (09:24)
[2019-11-30] MEDS: LEVOTHYROXINE 75 MCG TABLET PO SCH (09:24)
[2019-11-30 10:14] VITALS: BP 128/67
--- NOTE | 2019-11-30 10:30 | NUR ---
Patient was discharged home. Discharge instructions were reviewed with the patient who verbalized understanding. Patient left the unit via wheelchair with all her belongings accompanied by this RN. Patient was escorted to front entrance where she was met by who transported her home.
--- NOTE | 2019-11-30 11:30 | DS ---
DATE OF DISCHARGE: 11/30/2019 ATTENDING PHYSICIAN: Dr. Crandall FINAL DISCHARGE DIAGNOSES: 1. Acute on chronic respiratory failure. 2. Exacerbation of chronic obstructive pulmonary disease. 3. Continued tobacco addiction. 4. Hyperglycemia due to steroids. 5. Underlying bipolar disorder. 6. Essential hypertension. 7. Generalized anxiety disorder. 8. Hyponatremia due to diuretics. HISTORY OF PRESENT ILLNESS: This is a 59-year-old female who is under a lot of psychiatric distress at home. She continues to smoke a pack of cigarettes daily. She had increasing wheezing, shortness of breath. She was very tight. She was admitted then with acute on chronic respiratory failure with an exacerbation. Initial chest x-ray in the ED did not show any acute infiltrate. PHYSICAL EXAMINATION: Please see the dictated note. PERTINENT LABORATORY AND X-RAY STUDIES: Chest x-ray done on admission showed no acute cardiopulmonary process. Heart size is at the regular limits, no acute infiltrate was identified. LABORATORY STUDIES: Her admission hemoglobin was 12.4 g/dL, white count 19,000 due to margination of white cells from steroid therapy. Her nonfasting blood sugar in the mid 100s. Her chemistry panel showed sodium of 128, repeated after stopping her diuretics is up to 132 mEq/L; potassium is 4.2 mEq/L; creatinine stable at 1.0 mg/dL. COURSE IN THE HOSPITAL: The patient was admitted. She received 4 full days of empiric antibiotics. Steroids, high dose, were initially administered 80 mg 3 times a day, gradually tapered down to 60 mg p.o. daily. She did well. Supplemental oxygen was discontinued. Because of her strong anxiety component, I recommended increase of her Klonopin to 1 mg b.i.d. schedule as opposed to p.r.n. She did well with this, she slept better. By the fifth hospital day, her vital signs were quite stable. She was afebrile, oxygen saturations were 92% on room air. She was afebrile, blood pressure 113/60 mmHg, and her respiratory rate was down to 16 per minute. She had very, very minimal expiratory wheezes, but otherwise moving air quite well. At this time, she is discharged home. I recommended 7 more days of prednisone 60 mg p.o. daily and stop. I do not think she needs to be tapered. In addition, I carved out the hydrochlorothiazide component of her blood pressure meds and I recommended lisinopril 20 mg p.o. daily. She should continue her Abilify 10 mg daily, Tessalon Perles, Celexa 20 mg daily, Klonopin increased to 1 mg b.i.d., famotidine 20 b.i.d., Synthroid 75 mcg daily, lisinopril. The Xarelto has been stopped because her deep vein thrombosis over 2 years ago and we stopped her Xarelto during this hospitalization. She has Detrol ordered. I have asked her to see Dr. Rai's office for followup visit in 2 weeks' time. She was discharged then from our hospital in stable condition with explicit instructions and followup care. BLAIRE CRANDALL MD DR: JACY/digna JOB#: [id number] / [id number] JEANETTE Braxton MD
== END 2019-11-30 10:30 | disposition home or self-care (01) | DRG 189 ==
LOC: ER 09:01 → 1 SOUTH 10:45 → ICU 18:59
PROVIDERS: ADMIT Hospitalist; ATTEND Hospitalist
DX: J96.20 Acute and chronic respiratory failure, unspecified whether with hypoxia or hypercapnia (principal); E87.1 Hypo-osmolality and hyponatremia; J44.1 Chronic obstructive pulmonary disease with (acute) exacerbation; Z68.41 Body mass index [BMI] 40.0-44.9, adult; F17.210 Nicotine dependence, cigarettes, uncomplicated; F31.9 Bipolar disorder, unspecified; F41.1 Generalized anxiety disorder; F41.8 Other specified anxiety disorders; I10 Essential (primary) hypertension; T38.0X5A Adverse effect of glucocorticoids and synthetic analogues, initial encounter; T50.2X5A Adverse effect of carbonic-anhydrase inhibitors, benzothiadiazides and other diuretics, initial encounter; Z20.828 Contact with and (suspected) exposure to other viral communicable diseases; Z79.890 Hormone replacement therapy; Z79.899 Other long term (current) drug therapy; Z80.0 Family history of malignant neoplasm of digestive organs; Z90.49 Acquired absence of other specified parts of digestive tract; Z90.710 Acquired absence of both cervix and uterus; E66.01 Morbid (severe) obesity due to excess calories; F41.9 Anxiety disorder, unspecified; M19.90 Unspecified osteoarthritis, unspecified site; Z88.8 Allergy status to other drugs, medicaments and biological substances
CPT/HCPCS: 36415; 71045; 80048; 80053; 82803; 82947; 83880; 84484; 85007; 85025; 90471; 94640; 96365; 96375; 99406; J0696; J1100; J2060; J2930; 90686; 99285-25; J7613; U0003-CS

== ENCOUNTER 2020-01-21 10:17 | Emergency (ER) | payer MEDICARE ==
[~2020-01-21] VITALS: Ht 165.1 cm; Wt 116.7 kg
--- NOTE | 2020-01-21 11:10 | PHYS DOC ---
Past History Past Medical History: Arthritis, Bipolar, COPD, Depression, Diabetes Past Surgical History: Appendectomy, Hysterectomy Smoking: Cigarettes Alcohol Use: None Drug Use: None Adult General Chief Complaint Chief Complaint: ABDOMINAL PAIN HPI HPI Patient is a 59yo F who presents for nonspecific abdominal pain. This is an acute on chronic phenomenon which was worse than usual this morning without inciting event and/or trauma. Certain movements and direct palpation make worse. Pain is generalized to midline area without radiation. Timing of symptoms inte rmittent since onset "months ago". Patient's PO intake has not been affected, denies any changes in bladder or bowel function which also do not affect her AP. Denies fever, chest pain, shortness of breath, or urinary symptoms. Review of Systems Review of Systems Fourteen body systems of review of systems have been reviewed. See HPI for pertinent positives and negative responses, other tony all other systems are negative, non-pertinent or non-contributory Allergies Allergies Allergies Coded Allergies Type Severity Reaction Last Updated Verified amoxicillin Allergy Intermediate Rash 01/21/20 Yes carbamazepine Allergy Intermediate 01/21/20 Yes penicillin G Allergy Intermediate Hives 01/21/20 Yes Uncoded Allergies Type Severity Reaction Last Updated Verified control Adverse Reaction Intermediate 05/16/14 Physical Exam Physical Exam Constitutional: Well developed, well nourished, no acute distress, non-toxic appearance. HENT: Normocephalic, atraumatic, bilateral external ears normal, oropharynx moist, no oral exudates, nose normal. Eyes: PERRLA, EOMI, conjunctiva normal, no discharge. Neck: Normal range of motion, no tenderness, supple, no stridor. Cardiovascular: Heart rate regular, sinus rhythm, no murmurs rubs or gallops Lungs & Thorax: Bilateral breath sounds clear to auscultation Abdomen: Bowel sounds normal, soft, no tenderness, no masses, no pulsatile ma sses. Nonsurgical abdomen, no peritoneal signs Skin: Warm, dry, no erythema, no rash. Back: No tenderness, no CVA tenderness. Extremities: No tenderness, no cyanosis, no clubbing, ROM intact, no edema. Neurologic: Alert and oriented X 3, grossly normal motor & sensory function, no focal deficits noted. Psychologic: Affect normal, judgement normal, mood normal. Current Patient Data Vital Signs Vital Signs Date Time Temp Pulse Resp B/P (MAP) Pulse Ox O2 Delivery O2 Flow Rate FiO2 01/21/20 10:50 98.1 75 21 142/71 (94) 99 Room Air Lab Results Laboratory Tests Test 01/21/20 11:15 01/21/20 11:44 Urine Collection Type Unknown Urine Color Yellow Urine Clarity Clear Urine pH 6.0 Urine Specific [place] 1.020 Urine Protein Neg (NEG-TRACE) Urine Glucose (UA) Neg mg/dL (NEG) Urine Ketones (Stick) Neg mg/dL (NEG) Urine Blood Neg (NEG) Urine Nitrite Neg (NEG) Urine Bilirubin Neg (NEG) Urine Urobilinogen Dipstick 0.2 mg/dL (0.2 mg/dL) Urine Leukocyte Esterase Neg (NEG) Urine RBC Occ /HPF (0-2) Urine WBC 1-4 /HPF (0-4) Urine Squamous Epithelial Cells Mod /LPF Urine Bacteria 0 /HPF (0-FEW) White Blood Count 9.4 x10^3/uL (4.0-11.0) Red Blood Count 4.95 x10^6/uL (3.50-5.40) Hemoglobin 12.0 g/dL (12.0-15.5) Hematocrit 38.7 % (36.0-47.0) Mean Corpuscular Volume 78 fL (79-100) Mean Corpuscular Hemoglobin 24 pg (25-35) Mean Corpuscular Hemoglobin Concent 31 g/dL (31-37) Red Cell Distribution Width 19.6 % (11.5-14.5) Platelet Count 242 x10^3/uL (140-400) Neutrophils (%) (Auto) 64 % (31-73) Lymphocytes (%) (Auto) 22 % (24-48) Monocytes (%) (Auto) 9 % (0-9) Eosinophils (%) (Auto) 4 % (0-3) Basophils (%) (Auto) 1 % (0-3) Neutrophils # (Auto) 6.1 x10^3uL (1.8-7.7) Lymphocytes # (Auto) 2.0 x10^3/uL (1.0-4.8) Monocytes # (Auto) 0.8 x10^3/uL (0.0-1.1) Eosinophils # (Auto) 0.4 x10^3/uL (0.0-0.7) Basophils # (Auto) 0.1 x10^3/uL (0.0-0.2) Sodium Level 136 mmol/L (136-145) Potassium Level 3.7 mmol/L (3.5-5.1) Chloride Level 99 mmol/L (98-107) Carbon Dioxide Level 30 mmol/L (21-32) Anion Gap 7 (6-14) Blood Urea Nitrogen 17 mg/dL (7-20) Creatinine 1.1 mg/dL (0.6-1.0) Estimated GFR (Cockcroft-Gault) 51.0 BUN/Creatinine Ratio 15 (6-20) Glucose Level 106 mg/dL (70-99) Calcium Level 9.3 mg/dL (8.5-10.1) Total Bilirubin 0.3 mg/dL (0.2-1.0) Aspartate Amino Transf (AST/SGOT) 11 U/L (15-37) Alanine Aminotransferase (ALT/SGPT) 25 U/L (14-59) Alkaline Phosphatase 81 U/L (46-116) Creatine Kinase 40 U/L (26-192) Troponin I Quantitative < 0.017 ng/mL (0-0.055) Total Protein 6.8 g/dL (6.4-8.2) Albumin 3.1 g/dL (3.4-5.0) Albumin/Globulin Ratio 0.8 (1.0-1.7) Lipase 103 U/L (73-393) EKG EKG EKG ordered and interpreted by myself at 1135 hrs. as sinus rhythm at 68 bpm, unremarkable intervals, no axis deviation, no acute ischemic findings, no STEMI Radiology/Procedures Radiology/Procedures PROCEDURE: CT ABD PELV W/ORAL&IV CONTRAST EXAM: CT Abdomen and Pelvis with IV contrast INDICATION: Reason: LLQ PAIN [id number] / Spl. Instructions: / History: TECHNIQUE: Multi-detector row CT images were acquired from the lung bases through the abdomen and pelvis with the use of IV contrast. Sagittal and coronal images were acquired from the transaxial data. All CT scans performed at this facility utilize dose optimization techniques as appropriate to the exam, including the following: Automated exposure control and adjustment of the mA and/or KV according to patient size (this includes techniques or standardized protocols for targeted exams where dose is indication/reason for exam). IV CONTRAST: Administered ORAL CONTRAST: Administered COMPARISON: Noncontrast abdomen pelvis CT 28/11/2018 FINDINGS: LOWER CHEST: Moderate size hiatal hernia redemonstrated LIVER: Liver is enlarged measuring 20 cm in length and demonstrates diffuse hypoattenuation consistent with fatty filtration.. BILIARY SYSTEM: Gallbladder is unremarkable. Bile ducts are not dilated. PANCREAS: Unremarkable SPLEEN: Unremarkable ADRENALS: Unremarkable KIDNEYS & URETERS: Unremarkable BLADDER: Mild anterior bladder wall thickening is nonspecific. No stones or masses are evident. REPRODUCTIVE ORGANS: Hysterectomy GASTROINTESTINAL: The stomach, small bowel, and colon are unremarkable. The appendix is not seen and may be surgically absent.. MESENTERY/PERITONEUM/RETROPERITONEUM: Unremarkable VASCULAR: Scattered arterial calcifications. LYMPH NODES: No adenopathy OSSEOUS & SOFT TISSUES: The osseous structures are unremarkable. There is soft tissue stranding in the supraumbilical ventral abdominal subcutaneous fat, associated with a small ventral abdominal wall hernia. IMPRESSION: 1. No acute pathology in the abdomen or pelvis on contrast enhanced CT. In particular, no specific findings to explain left lower quadrant abdominal pain is seen. Correlate for any clinical signs or symptoms of cystitis. 2. Incidental note is made of slightly more soft tissue stranding around a small ventral abdominal wall hernia above the umbilicus that is of uncertain clinical relevance. Electronically signed by: Jaron Caraballo MD (01/21/2020 1:24 PM) [id number] DICTATED AND SIGNED BY: JARON CARABALLO MD DATE: 01/21/20 1324 Heart Score HEART Score for Chest Pain: HEART Score for Chest Pain Response (Comments) Value History Slighlty/Non-Suspicious 0 ECG Normal 0 Age >45 - < 65 1 Risk Factors 1 or 2 Risk Factors 1 Troponin < Normal Limit 0 Total 2 Risk Factors: Risk Factors: DM, Current or recent (<one month) smoker, HTN, HLP, family history of CAD, obesity. Risk Scores: Risk Factors: DM, Current or recent (<one month) smoker, HTN, HLP, family history of CAD, obesity. Course & Med Decision Making Course & Med Decision Making Pertinent Labs and Imaging studies reviewed. (See chart for details) Discussed most likely diagnosis of symptomatic, non-strangulated midline hernia vs bladder infection. Based on comprehensive workup, I feel patient is not suffering from bladder infection but likely abdominal strain/discomfort from hernia. With this said, I did disclose this might be an acute presentation of more concerning pathology and thus, close PCP follow-up advised She is hemodynamically stable, afebrile, non-toxic appearing, tolerating PO intake and ambulatory. I feel she she is safe for discharge Patient reports PCP follow-up previously scheduled for this upcoming week, I feel this is reasonable. Advised her to discuss symptoms for consideration of surgery referral vs repeat UA as indicated. Strict return precautions discussed with all questions and concerns addressed prior to ED departure, all questions and concerns addressed prior to departure Dragon Disclaimer Dragon Disclaimer This electronic medical record was generated, in whole or in part, using a voice recognition dictation system. Departure Departure: Impression: Primary Impression: Abdominal pain Additional Impression: Ventral hernia Disposition: DC HOME SELF CARE/HOMELESS Condition: STABLE Referrals: JEANETTE JOY MD (PCP) Patient Instructions: Abdominal Pain (Nonspecific), Hernia Additional Instructions: You have been evaluated in the Emergency Department today for abdominal pain. Your evaluation was not suggestive of any emergent condition requiring medical intervention at this time. However, some abdominal problems make take more time to appear. Therefore, it is important for you to watch for any new symptoms or worsening of your current condition. As discussed, you have a small ventral hernia that is nonstrangulated, please follow-up with your primary care physician and if indicated, general surgeon to have this addressed in the outpatient setting Return to the Emergency Department if you experience worsening pain, persistent fevers greater than 100.4, recurrent vomiting, blood in vomit, blood in stool, dark tarry stool, chest pain, difficulty breathing, or any other concerning symptoms. Problem Qualifiers GAYLE WIN DO Jan 21, 2020 11:10
[2020-01-21] MEDS ORDERED: IOHEXOL 240 MG/ML 50ML VIAL. ONE (11:29)
[2020-01-21 11:44] LABS: BILIRUBIN,URINE NEG (NEG); CLARITY,URINE CLEAR; COLOR,URINE YELLOW; GLUCOSE,URINE NEG (NEG); UROBILINOGEN,URINE 0.2 mg/dL (0.2 mg/dL)
[2020-01-21 11:45] LABS: BACTERIA,URINE 0 /HPF (0-FEW); NITRITE,URINE NEG (NEG); RBC,URINE OCC /HPF (0-2); SQUAMOUS EPITHELIAL CELL,UR MOD /LPF
[2020-01-21] MEDS ORDERED: IOHEXOL 240 MG/ML 50ML VIAL. PO ONE (11:45)
[2020-01-21] MEDS ORDERED: IOHEXOL 300 MG/ML 75 ML VIAL. IV ONE (11:45)
[2020-01-21 12:07] LABS: BASO # 0.1 x10^3/uL (0.0-0.2); BASO % 1 % (0-3); EOS # 0.4 x10^3/uL (0.0-0.7); EOS % 4 % (0-3); HEMATOCRIT 38.7 % (36.0-47.0); LYMPH % 22 % (24-48); MEAN CORPUSCULAR HEMOGLOBIN 24 pg (25-35); MEAN CORPUSCULAR HGB CONC 31 g/dL (31-37); MEAN CORPUSCULAR VOLUME 78 fL (79-100); MONO # 0.8 x10^3/uL (0.0-1.1); MONO % 9 % (0-9); NEUT # 6.1 x10^3uL (1.8-7.7); NEUT % 64 % (31-73); PLATELET COUNT 242 x10^3/uL (140-400); RED BLOOD COUNT 4.95 x10^6/uL (3.50-5.40); RED CELL DISTRIBUTION WIDTH 19.6 % (11.5-14.5); WHITE BLOOD COUNT 9.4 x10^3/uL (4.0-11.0)
[2020-01-21 12:12] LABS: CALCIUM 9.3 mg/dL (8.5-10.1); CREATININE 1.1 mg/dL (0.6-1.0); POTASSIUM 3.7 mmol/L (3.5-5.1)
[2020-01-21 12:18] LABS: ALBUMIN 3.1 g/dL (3.4-5.0); ALBUMIN/GLOBULIN RATIO 0.8 (1.0-1.7); TOTAL BILIRUBIN 0.3 mg/dL (0.2-1.0); TOTAL PROTEIN 6.8 g/dL (6.4-8.2)
[2020-01-21] MEDS ORDERED: IPRATRPIUM/ALBUTEROL 0.5/2.5MG 3 ML NEBU. ONE (12:44)
[2020-01-21] MEDS ORDERED: IPRATRPIUM/ALBUTEROL 0.5/2.5MG 3 ML NEBU. NEB ONE (12:45)
--- NOTE | 2020-01-21 13:28 | RAD ---
EXAM: CT Abdomen and Pelvis with IV contrast INDICATION: Reason: LLQ PAIN [id number] / Spl. Instructions: / History: TECHNIQUE: Multi-detector row CT images were acquired from the lung bases through the abdomen and pelvis with the use of IV contrast. Sagittal and coronal images were acquired from the transaxial data. All CT scans performed at this facility utilize dose optimization techniques as appropriate to the exam, including the following: Automated exposure control and adjustment of the mA and/or KV according to patient size (this includes techniques or standardized protocols for targeted exams where dose is indication/reason for exam). IV CONTRAST: Administered ORAL CONTRAST: Administered COMPARISON: Noncontrast abdomen pelvis CT 28/11/2018 FINDINGS: LOWER CHEST: Moderate size hiatal hernia redemonstrated LIVER: Liver is enlarged measuring 20 cm in length and demonstrates diffuse hypoattenuation consistent with fatty filtration.. BILIARY SYSTEM: Gallbladder is unremarkable. Bile ducts are not dilated. PANCREAS: Unremarkable SPLEEN: Unremarkable ADRENALS: Unremarkable KIDNEYS & URETERS: Unremarkable BLADDER: Mild anterior bladder wall thickening is nonspecific. No stones or masses are evident. REPRODUCTIVE ORGANS: Hysterectomy GASTROINTESTINAL: The stomach, small bowel, and colon are unremarkable. The appendix is not seen and may be surgically absent.. MESENTERY/PERITONEUM/RETROPERITONEUM: Unremarkable VASCULAR: Scattered arterial calcifications. LYMPH NODES: No adenopathy OSSEOUS & SOFT TISSUES: The osseous structures are unremarkable. There is soft tissue stranding in the supraumbilical ventral abdominal subcutaneous fat, associated with a small ventral abdominal wall hernia. IMPRESSION: 1. No acute pathology in the abdomen or pelvis on contrast enhanced CT. In particular, no specific findings to explain left lower quadrant abdominal pain is seen. Correlate for any clinical signs or symptoms of cystitis. 2. Incidental note is made of slightly more soft tissue stranding around a small ventral abdominal wall hernia above the umbilicus that is of uncertain clinical relevance. Electronically signed by: Braulio Caraballo MD (01/21/2020 1:24 PM) [id number]
[2020-01-21 13:50] VITALS: BP 126/72
--- NOTE | 2020-01-23 13:22 | EKG ---
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
== END 2020-01-21 13:51 | disposition home or self-care (01) ==
LOC: ER 10:17
DX: K43.9 Ventral hernia without obstruction or gangrene (principal); R10.84 Generalized abdominal pain; M19.90 Unspecified osteoarthritis, unspecified site; F32.9 Major depressive disorder, single episode, unspecified; J44.9 Chronic obstructive pulmonary disease, unspecified; E11.9 Type 2 diabetes mellitus without complications; F17.210 Nicotine dependence, cigarettes, uncomplicated; Z90.89 Acquired absence of other organs; Z90.710 Acquired absence of both cervix and uterus; Z88.0 Allergy status to penicillin; Z88.1 Allergy status to other antibiotic agents; Z88.8 Allergy status to other drugs, medicaments and biological substances
CPT/HCPCS: 36415; 74177; 80053; 81001; 82550; 83690; 84484; 85025; 93005; 94640; 99285; Q9966; Q9967

== ENCOUNTER 2020-04-14 18:21 | Emergency (ER) | payer MEDICARE ==
[~2020-04-14] VITALS: Ht 165.1 cm; Wt 116.0 kg
[~2020-04-14 18:21] MED LIST changes: -LISI-334 PO; +LISI20TA18 PO
--- NOTE | 2020-04-14 18:30 | PHYS DOC ---
Past History Past Medical History: Anxiety, Arthritis, Bipolar, COPD, Depression, Diabetes Past Surgical History: Appendectomy, Hysterectomy Smoking: Cigarettes Alcohol Use: None Drug Use: None General Adult EDM: Chief Complaint: SHORTNESS OF BREATH HPI: HPI: ".. I am having erin of COPD exacerbation..I was hoping to not come .. in but I starting have these coughing spells." Patient is a 59 year old female who presents with above hx and complaints increased wheezing, coughing, shortness of breath, and subjective fevers. Patient has a long history of acute on chronic episodes of respiratory failure, COPD, tobacco addiction, hyperglycemia when on steroids, bipolar disorder, hypertension, generalized anxiety, and hyponatremia due to diuretics. She continues smoke cigarettes. Patient denies any recent travel. Has not been on antibiotics or steroids recently. Normally follows with Dr. Meño Ayala. Patient denies any recent travel specific ill contacts. No one else in here close contacts are ill currently. the Review of Systems: Review of Systems: Constitutional: Subjective fever Eyes: Denies change in visual acuity HENT: History of nasal congestion . Respiratory: Complains of pain on productive cough and shortness of breath Cardiovascular: Denies chest pain or edema GI: Denies abdominal pain, nausea, vomiting, bloody stools or diarrhea : Denies dysuria Musculoskeletal: Denies back pain or joint pain Integument: Denies rash Neurologic: Denies headache, focal weakness or sensory changes Endocrine: Denies polyuria or polydipsia Lymphatic: Denies swollen glands Psychiatric: Complains of anxiety Family History: Family History: Noncontributory to presentation Current Medications: Current Meds: See nursing for home meds Allergies: Allergies: Allergies Coded Allergies Type Severity Reaction Last Updated Verified amoxicillin Allergy Intermediate Rash 01/21/20 Yes carbamazepine Allergy Intermediate 01/21/20 Yes penicillin G Allergy Intermediate Hives 01/21/20 Yes Uncoded Allergies Type Severity Reaction Last Updated Verified control Adverse Reaction Intermediate 05/16/14 Physical Exam: PE: Constitutional: Moderate acute distress, non-toxic appearance. [] HENT: Normocephalic, atraumatic, bilateral external ears normal, oropharynx moist, mild pharyngeal injection, postnasal drainage, no oral exudates, nose swollen turbinates and clear rhinorrhea Eyes: PERRLA, EOMI, conjunctiva normal, no discharge. [] Neck: Normal range of motion, no tenderness, supple, no stridor. [] Cardiovascular:Heart rate regular rhythm, no murmur [] Lungs & Thorax: Bilateral breath sounds equal at apex with scattered wheezes auscultation [] Abdomen: Bowel sounds normal, soft, no tenderness, no masses, no pulsatile masses. Obese. Old surgery scars. Skin: Warm, dry, no erythema, no rash. [] Back: No tenderness, no CVA tenderness. [] Extremities: No tenderness, no cyanosis, no clubbing, ROM intact, ankle edema. No cording appreciated Neurologic: Alert and oriented X 3, moves all extremities on request, has distal sensory,, no focal deficits noted. [] Psychologic: Affect anxious, , judgement normal, mood normal. [] EKG: EKG: My interpretation EKG shows a sinus rhythm at 82 bpm. Does have a occasional premature atrial complexes []No findings acute STEMI of contralateral changes Radiology/Procedures: Radiology/Procedures: [][place] [address] IMAGING REPORT Signed PATIENT: JLUES DAVALOS ACCOUNT: [id number] : 1960 LOCATION: ER AGE: 59 SEX: F EXAM STATUS: REG ER ORD. PHYSICIAN: KANDICE CARDENAS MD REASON: dyspnea PROCEDURE: PORTABLE CHEST 1V XR CHEST 1V 04/14/2020 6:40 PM INDICATION: Dyspnea COMPARISON: 11/26/2019 TECHNIQUE: Portable frontal view of the chest is provided. FINDINGS: The cardiomediastinal silhouette is within normal limits. Lungs are clear. There are no significant pleural effusions. There is no pulmonary vascular congestion. No pneumothorax. No suspicious osseous abnormality. IMPRESSION: There is no acute cardiopulmonary process. Electronically signed by: Christian Hutchinson MD (04/14/2020 6:48 PM) [facility] DICTATED AND SIGNED BY: CHRISTIAN HUTCHINSON MD DATE: 04/14/20 1848 CC: KANDICE CARDENAS MD; JEANETTE JOY MD ~MTH0 0 Heart Score: HEART Score for Chest Pain: HEART Score for Chest Pain Response (Comments) Value History Slighlty/Non-Suspicious 0 ECG Normal 0 Age >45 - < 65 1 Risk Factors 1 or 2 Risk Factors 1 Troponin < Normal Limit 0 Total 2 Risk Factors: Risk Factors: DM, Current or recent (<one month) smoker, HTN, HLP, family history of CAD, obesity. Risk Scores: Score 0 - 3: 2.5% MACE over next 6 weeks - Discharge Home Score 4 - 6: 20.3% MACE over next 6 weeks - Admit for Clinical Observation Score 7 - 10: 72.7% MACE over next 6 weeks - Early Invasive Strategies Course & Med Decision Making: Course & Med Decision Making Pertinent Labs and Imaging studies reviewed. (See chart for details) Patient received steroids, Zithromax, fluids, breathing treatments with gradual improvement of her overall symptoms. Reviewed EKG /labs/x-rays with patient. Patient's requesting to be discharged home okay trial at home on antibiotics and steroids. Patient advised to push fruit juices. To follow-up with primary care. Return if any concerns. The patient patient will need to monitor her sugars closely because of her past history of elevated glucose levels with the use of steroids. Impression: 1. COPD Exacerbation 2. Diabetes glucose 157 3. Mild leukocytosis 13.4 4. Anemia 10.9 hemoglobin 5. Mild hyponatremia 134 and hypokalemia 3.4 6. Tobacco abuse 7. Anxiety 8. Hx. Bipolar [] Dragon Disclaimer: Dragon Disclaimer: This electronic medical record was generated, in whole or in part, using a voice recognition dictation system. Departure Departure: Referrals: JEANETTE JOY MD (PCP) Scripts Azithromycin (ZITHROMAX) 250 Mg Tablet 250 MG PO DAILY for ANTI-BIOTIC, #5 TAB 0 Refills Prov: KANDICE CARDENAS MD 04/14/20 Prednisone (PREDNISONE) 50 Mg Tablet 50 MG PO DAILY for bronchitis for 5 Days, #5 TAB Prov: KANDICE CARDENAS MD 04/14/20 [place] Disclaimer This chart was dictated in whole or in part using Voice Recognition software in a busy, high-work load, and often noisy Emergency Department environment. It may contain unintended and wholly unrecognized errors or omissions. Dragon Disclaimer This chart was dictated in whole or in part using Voice Recognition software in a busy, high-work load, and often noisy Emergency Department environment. It may contain unintended and wholly unrecognized errors or omissions. KANDICE CARDENAS MD Apr 14, 2020 18:30
[2020-04-14] MEDS ORDERED: ALBUTEROL SULFATE 8GM INHALER. INH ONE (18:45)
[2020-04-14] MEDS ORDERED: methylPREDNISolone SOD SUCC PF 125 MG/2 ML VIAL. IV ONE (18:45)
[2020-04-14] MEDS ORDERED: ASPIRIN CHEWABLE 81 MG TABLET. PO ONE (18:45)
[2020-04-14] MEDS ORDERED: IV RINGERS SOLUTION,LACTATED 1,000 ML IV SCH (18:45)
[2020-04-14] MEDS ORDERED: AZITHROMYCIN 250 MG TABLET. PO ONE (18:45)
--- NOTE | 2020-04-14 18:51 | RAD ---
XR CHEST 1V 04/14/2020 6:40 PM INDICATION: Dyspnea COMPARISON: 11/26/2019 TECHNIQUE: Portable frontal view of the chest is provided. FINDINGS: The cardiomediastinal silhouette is within normal limits. Lungs are clear. There are no significant pleural effusions. There is no pulmonary vascular congestion. No pneumothora x. No suspicious osseous abnormality. IMPRESSION: There is no acute cardiopulmonary process. Electronically signed by: Melanie Horowitz MD (04/14/2020 6:48 PM) [facility]
--- NOTE | 2020-04-14 18:56 | EKG ---
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
[2020-04-14] MEDS ORDERED: IPRATRPIUM/ALBUTEROL 0.5/2.5MG 3 ML NEBU. NEB ONE (19:00)
[2020-04-14 20:00] LABS: CALCIUM 9.3 mg/dL (8.5-10.1); CREATININE 0.9 mg/dL (0.6-1.0); GFR 64.3; POTASSIUM 3.4 mmol/L (3.5-5.1)
[2020-04-14 20:18] LABS: BASO % 0 % (0-3); EOS # 0.4 x10^3/uL (0.0-0.7); EOS % 3 % (0-3); HEMATOCRIT 35.4 % (36.0-47.0); HEMOGLOBIN 10.9 g/dL (12.0-15.5); LYMPH % 15 % (24-48); MEAN CORPUSCULAR HEMOGLOBIN 24 pg (25-35); MEAN CORPUSCULAR HGB CONC 31 g/dL (31-37); MEAN CORPUSCULAR VOLUME 79 fL (79-100); MONO % 7 % (0-9); NEUT # 10.1 x10^3uL (1.8-7.7); NEUT % 75 % (31-73); PLATELET COUNT 303 x10^3/uL (140-400); RED CELL DISTRIBUTION WIDTH 17.2 % (11.5-14.5); WHITE BLOOD COUNT 13.4 x10^3/uL (4.0-11.0)
[2020-04-14 20:45] LABS: ALBUMIN 3.2 g/dL (3.4-5.0); DIRECT BILIRUBIN 0.1 mg/dL (0.0-0.2); MAGNESIUM 1.9 mg/dL (1.8-2.4); TOTAL BILIRUBIN 0.3 mg/dL (0.2-1.0); TOTAL PROTEIN 7.2 g/dL (6.4-8.2)
[2020-04-14 22:00] VITALS: BP 136/79
[2020-04-14] MEDS ORDERED: AZIT250T PO (22:11)
[2020-04-14] MEDS ORDERED: PRED50TA PO (22:11)
--- NOTE | 2020-04-18 10:02 | NUR ---
IP: notified patient of COVID result.
== END 2020-04-14 22:20 | disposition home or self-care (01) ==
LOC: ER 18:21
DX: J44.1 Chronic obstructive pulmonary disease with (acute) exacerbation (principal); E11.9 Type 2 diabetes mellitus without complications; D72.829 Elevated white blood cell count, unspecified; D64.9 Anemia, unspecified; E87.1 Hypo-osmolality and hyponatremia; E87.6 Hypokalemia; F41.9 Anxiety disorder, unspecified; F31.9 Bipolar disorder, unspecified; M19.90 Unspecified osteoarthritis, unspecified site; F17.210 Nicotine dependence, cigarettes, uncomplicated; Z20.822 Contact with and (suspected) exposure to COVID-19; Z88.1 Allergy status to other antibiotic agents; Z88.8 Allergy status to other drugs, medicaments and biological substances; Z88.0 Allergy status to penicillin
CPT/HCPCS: 36415; 71045; 80048; 80076; 82550; 83690; 83735; 83880; 84443; 84484; 85025; 85379; 85610; 85730; 87040; 93005; 94640; 96374; 99285; C9803; J2930; U0003; 94664

== ENCOUNTER → 2020-07-27 | Outpatient (CLI) | payer MEDICARE ==
[~2020-07-27] MED LIST changes: +AZIT250T PO; +PRED50TA PO
--- NOTE | 2020-07-27 12:24 | RAD ---
EXAM: Chest, 2 views. HISTORY: Cough. COMPARISON: 04/14/2020 FINDINGS: 2 views of the chest are obtained. There is no infiltrate, pleural effusion or pneumothorax . There is cardiomegaly. There is a moderate hiatal hernia. IMPRESSION: No acute pulmonary finding. Electronically signed by: Cheryl Thapa MD (07/27/2020 12:22 PM) [id number]
== END ==
LOC: RAD 11:31
PROVIDERS: ATTEND Physician Assistant
DX: J44.1 Chronic obstructive pulmonary disease with (acute) exacerbation (principal); I51.7 Cardiomegaly; K44.9 Diaphragmatic hernia without obstruction or gangrene
CPT/HCPCS: 71046

== ENCOUNTER → 2020-10-05 | Outpatient (CLI) | payer MEDICARE ==
--- NOTE | 2020-10-05 17:26 | RAD ---
XR ABDOMEN 1V History: Reason: CONSTIPATION, ABD PAIN / Spl. Instructions: / History: Technique: Supine views of the abdomen. Comparison: None. Findings: Minimal small bowel gas. Air and stool throughout the colon. Moderate proximal colonic stool burden. Imaged lung bases are unremarkable. Lower lumbar spondylosis. Impression: 1. Nonobstructed bowel gas pattern. 2. Moderate proximal colonic stool burden. Electronically signed by: Devante Galaviz DO (10/05/2020 5:23 PM) [id number]
== END ==
LOC: RAD 15:07
PROVIDERS: ATTEND Specialist
DX: K59.00 Constipation, unspecified (principal); M47.816 Spondylosis without myelopathy or radiculopathy, lumbar region
CPT/HCPCS: 74018

== ENCOUNTER 2020-10-14 13:08 | Emergency (ER) | payer MEDICARE ==
[~2020-10-14] VITALS: Ht 165.1 cm; Wt 116.0 kg
[2020-10-14] MEDS ORDERED: predniSONE 20 MG TABLET PO ONE (13:30)
[2020-10-14] MEDS ORDERED: DOXYCYCLINE HYCLATE 100 MG TABLET PO ONE (13:30)
[2020-10-14] MEDS ORDERED: IPRATRPIUM/ALBUTEROL 0.5/2.5MG 3 ML NEBU. NEB ONE (13:30)
--- NOTE | 2020-10-14 13:41 | PHYS DOC ---
Past History Past Medical History: Anxiety, Arthritis, Bipolar, COPD, Depression, Diabetes Past Surgical History: No Surgical History Smoking: Cigarettes Alcohol Use: None Drug Use: None Adult General Chief Complaint Chief Complaint: SHORTNESS OF BREATH HPI HPI Patient is a 60 year old female with history of COPD who presents with 2-3 days of increasing wheezing and shortness of breath at home. She does not use home O2. She has been using albuterol treatments which helped somewhat. She is also had a cough and green and white sputum production which is atypical for her. She does report a fever to 101 F last night that broke spontaneously. Denies any fever/chills today. States that she was put on antibiotic by her PCP sometime last week, but lost her prescription and so did not complete it. Denies chest pain. She is partially vaccinated for Covid. Review of Systems Review of Systems Constitutional: + Fever and chills [] Eyes: Denies change in visual acuity, redness, or eye pain [] HENT: Denies nasal congestion or sore throat [] Respiratory: + Cough, sputum production, shortness of breath, wheezing [] Cardiovascular: No additional information not addressed in HPI [] GI: Denies abdominal pain, nausea, vomiting, bloody stools or diarrhea [] : Denies dysuria or hematuria [] Musculoskeletal: Denies back pain or joint pain [] Integument: Denies rash or skin lesions [] Neurologic: Denies headache, focal weakness or sensory changes [] Endocrine: Denies polyuria or polydipsia [] All other systems were reviewed and found to be within normal limits, except as documented in this note. Family History Family History No pertinent family history Allergies Allergies Allergies Coded Allergies Type Severity Reaction Last Updated Verified amoxicillin Allergy Intermediate Rash 10/14/20 Yes carbamazepine Allergy Intermediate 10/14/20 Yes penicillin G Allergy Intermediate Hives 10/14/20 Yes Uncoded Allergies Type Severity Reaction Last Updated Verified control Adverse Reaction Intermediate 05/16/14 Physical Exam Physical Exam Constitutional: Well developed, well nourished, no acute distress, non-toxic appearance. [] HENT: Normocephalic, atraumatic, bilateral external ears normal, oropharynx moist, no oral exudates, nose normal. [] Eyes: PERRLA, EOMI, conjunctiva normal, no discharge. [] Neck: Normal range of motion, no tenderness, supple, no stridor. [] Cardiovascular:Heart rate regular rhythm, no murmur [] Lungs & Thorax: Mild tachypnea. Bilateral expiratory wheezes. Pursed lip breathing with end expiratory phase prolonged. [] Abdomen: Bowel sounds normal, soft, no tenderness, no masses, no pulsatile masses. [] Skin: Warm, dry, no erythema, no rash. [] Back: No tenderness, no CVA tenderness. [] Extremities: No tenderness, no cyanosis, no clubbing, ROM intact, no edema. [] Neurologic: Alert and oriented X 3, normal motor function, normal sensory function, no focal deficits noted. [] Psychologic: Affect normal, judgement normal, mood normal. [] EKG EKG Sinus rhythm. Rate 68. Normal axis. Normal intervals. Late transition anteriorly, question lead placement problem. No acute ischemic changes such as Q waves, T wave inversion, ST E, or STD. [] Radiology/Procedures Radiology/Procedures CXR [] Impressions: [place] [address] IMAGING REPORT Signed PATIENT: JULES DAVALOS ACCOUNT: [id number] : 1960 LOCATION: ER AGE: 60 SEX: F EXAM STATUS: REG ER ORD. PHYSICIAN: SUNDAR CAMP MD REASON: SOB, COPD HX PROCEDURE: CHEST AP ONLY EXAM: Chest, single view. HISTORY: Shortness of breath. COMPARISON: 07/27/2020 FINDINGS: A frontal view of the chest is obtained. There is suspected lingular lingular scarring or atelectasis. There is no consolidation, pleural effusion or pneumothorax. There is a stable cardiac silhouette. There is a moderate hiatal hernia. IMPRESSION: No acute pulmonary finding. Electronically signed by: Cheryl Boyle MD (10/14/2020 1:53 PM) [id number] DICTATED AND SIGNED BY: CHERYL BOYLE MD DATE: 10/14/20 [id number] CC: SUNDAR CAMP MD; JEANETTE JOY MD ~MTH0 0 Heart Score C/O Chest Pain: N/A Risk Factors: Risk Factors: DM, Current or recent (<one month) smoker, HTN, HLP, family history of CAD, obesity. Risk Scores: Risk Factors: DM, Current or recent (<one month) smoker, HTN, HLP, family history of CAD, obesity. Course & Med Decision Making Course & Med Decision Making Pertinent Labs and Imaging studies reviewed. (See chart for details) Patient 60-year-old female with history of COPD who presents with 2-3 days of in creasing wheezing and shortness of breath. Cough productive of sputum. Wheezing noted on exam. Certainly consistent with COPD exacerbation. Will dose with 40 mg of prednisone, doxycycline, and a breathing treatment. Will obtain labs and chest x-ray to ensure no underlying pneumonia. Covid swab sent. Vitals and oxygenation are stable at this time. 1338 Chest x-ray without pneumonia. Continues to sat well on room air. Feel she is safe for discharge with a steroid burst and doxycycline prescription. Has a PCP to follow-up with closely. Return precautions given. 1419 Dragon Disclaimer Dragon Disclaimer This electronic medical record was generated, in whole or in part, using a voice recognition dictation system. Departure Departure: Impression: Primary Impression: COPD exacerbation Disposition: HOME / SELF CARE / HOMELESS Condition: STABLE Referrals: JEANETTE JOY MD (PCP) Additional Instructions: Your chest x-ray and blood work was reassuring against pneumonia. I do feel that you're suffering from a COPD exacerbation. You'll need to take prednisone once a day for the next 5 days. He'll take an antibiotic for 7 days. It is a twice a day medication. It should cover any skin infection from your tick bite as well as tickborne illness. You can continue to use your albuterol inhaler every 4 hours as needed. If you're using it much more frequently than that, you have worsening shortness of breath, high fevers/chills, or other new/concerning symptoms please return to the emergency department for reevaluation. Your Covid test is pending. Please self isolate until you know the results of this test. It should be resulted by tomorrow afternoon. Please follow-up with your primary care doctor. Scripts Doxycycline Monohydrate (DOXYCYCLINE MONOHYDRATE) 100 Mg Capsule 1 CAP PO BID for COPD EXACERBATION, #14 CAP Prov: SUNDAR CAMP MD 10/14/20 Prednisone (PREDNISONE) 50 Mg Tablet 50 MG PO DAILY for COPD for 5 Days, #5 TAB Prov: SUNDAR CAMP MD 10/14/20 SUNDAR CAMP MD Oct 14, 2020 13:41
[2020-10-14] MEDS ORDERED: ALBUTEROL SULFATE 8GM INHALER. ONE (13:51)
--- NOTE | 2020-10-14 13:55 | RAD ---
EXAM: Chest, single view. HISTORY: Shortness of breath. COMPARISON: 07/27/2020 FINDINGS: A frontal view of the chest is obtained. There is suspected lingular lingular scarring or a telectasis. There is no consolidation, pleural effusion or pneumothorax. There is a stable cardiac si lhouette. There is a moderate hiatal hernia. IMPRESSION: No acute pulmonary finding. Electronically signed by: Cheryl Thapa MD (10/14/2020 1:53 PM) [id number]
[2020-10-14 14:04] LABS: BASO # 0.1 x10^3/uL (0.0-0.2); BASO % 1 % (0-3); EOS # 0.2 x10^3/uL (0.0-0.7); EOS % 2 % (0-3); HEMATOCRIT 35.4 % (36.0-47.0); LYMPH # 1.8 x10^3/uL (1.0-4.8); LYMPH % 18 % (24-48); MEAN CORPUSCULAR HEMOGLOBIN 23 pg (25-35); MEAN CORPUSCULAR HGB CONC 31 g/dL (31-37); MEAN CORPUSCULAR VOLUME 74 fL (79-100); MONO # 1.2 x10^3/uL (0.0-1.1); MONO % 12 % (0-9); NEUT # 6.4 x10^3uL (1.8-7.7); NEUT % 67 % (31-73); PLATELET COUNT 330 x10^3/uL (140-400); RED BLOOD COUNT 4.75 x10^6/uL (3.50-5.40); RED CELL DISTRIBUTION WIDTH 19.5 % (11.5-14.5); WHITE BLOOD COUNT 9.6 x10^3/uL (4.0-11.0)
[2020-10-14 14:10] LABS: CREATININE 0.9 mg/dL (0.6-1.0); GFR 64.1; POTASSIUM 3.6 mmol/L (3.5-5.1)
--- NOTE | 2020-10-14 14:15 | EKG ---
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
[2020-10-14 14:16] LABS: ALBUMIN 3.3 g/dL (3.4-5.0); ALBUMIN/GLOBULIN RATIO 0.8 (1.0-1.7); TOTAL BILIRUBIN 0.4 mg/dL (0.2-1.0); TOTAL PROTEIN 7.4 g/dL (6.4-8.2)
[2020-10-14] MEDS ORDERED: PRED50TA PO (14:24)
[2020-10-14] MEDS ORDERED: DOXY-181 PO (14:24)
[2020-10-14 14:36] VITALS: BP 128/63
== END 2020-10-14 14:43 | disposition home or self-care (01) ==
LOC: ER 13:08
DX: J44.1 Chronic obstructive pulmonary disease with (acute) exacerbation (principal); E11.9 Type 2 diabetes mellitus without complications; F17.210 Nicotine dependence, cigarettes, uncomplicated; Z20.822 Contact with and (suspected) exposure to COVID-19; Z88.1 Allergy status to other antibiotic agents; Z88.0 Allergy status to penicillin
CPT/HCPCS: 71045; 80053; 85025; 93005; 94640; 99285; C9803; J7512; U0003

== ENCOUNTER 2021-02-07 14:55 | Emergency (ER) | payer MEDICARE ==
[~2021-02-07] VITALS: Ht 165.1 cm; Wt 116.0 kg
[~2021-02-07 14:55] MED LIST changes: +DOXY-181 PO; -LISI1TAB20 PO; +LISI1TAB39 PO
[2021-02-07 14:59] VITALS: BP 153/68
[2021-02-07] MEDS ORDERED: KETOROLAC 60 MG/2 ML VIAL. IM ONE (15:15)
[2021-02-07] MEDS ORDERED: ORPHENADRINE CITRATE 60 MG/2 ML VIAL. IM ONE (15:15)
--- NOTE | 2021-02-07 15:21 | PHYS DOC ---
Past History Past Medical History: Anxiety, Arthritis, Bipolar, COPD, Depression, Diabetes (THOMAS PHILLIP APRN) Past Surgical History: Hysterectomy, Tubal ligation (THOMAS PHILLIP APRN) Smoking: Cigarettes Alcohol Use: None Drug Use: None (THOMAS PHILLIP APRN) General Adult EDM: Chief Complaint: BACK PAIN - NO INJURY HPI: HPI: Patient is a 60-year-old female who presents to the emergency department today for left lower back pain that radiates down her leg that started 3 days ago. Patient describes the pain as a stabbing pain. She rates it 6 out of 10. Patient reports that she was diagnosed with a "pinched nerve" at her primary care provider's office. The pain is worse with ambulation. She denies any injuries. She denies any new loss of bowel or bladder, she has a history of incontinence. She denies any saddle anesthesias or numbness or tingling down her extremities. Patient reports that she is taking meloxicam, Tylenol and gabapentin for her pain. (THOMAS PHILLIP APRN) Review of Systems: Review of Systems: : See HPI Musculoskeletal: See HPI Neurologic: See HPI (THOMAS PHILLIP APRN) Current Medications: Current Meds: Current Medications Medications (Trade) Dose Ordered Sig/Fiorella Start Time Stop Time Status Last Admin Dose Admin Ketorolac Tromethamine (Toradol Im) 60 mg 1X ONCE 02/07/21 15:15 02/07/21 15:16 UNV Orphenadrine Citrate (Norflex) 60 mg 1X ONCE 02/07/21 15:15 02/07/21 15:16 UNV (THOMAS PHILLIP APRN) Allergies: Allergies: Allergies Coded Allergies Type Severity Reaction Last Updated Verified amoxicillin Allergy Intermediate Rash 10/14/20 Yes carbamazepine Allergy Intermediate 10/14/20 Yes penicillin G Allergy Intermediate Hives 10/14/20 Yes Uncoded Allergies Type Severity Reaction Last Updated Verified control Adverse Reaction Intermediate 05/16/14 (THOMAS PHILLIP APRN) Physical Exam: PE: Constitutional: Well developed, well nourished, no acute distress, non-toxic christopher earance. [] HENT: Normocephalic, atraumatic, bilateral external ears normal, oropharynx moist, no oral exudates, nose normal. [] Eyes: PERRL, EOMI, conjunctiva normal, no discharge. [] Neck: Normal range of motion, no tenderness, supple, no stridor. [] Cardiovascular:Heart rate regular rhythm, no murmur [] Lungs & Thorax: Bilateral breath sounds clear to auscultation [] Abdomen: Bowel sounds normal, soft, no tenderness, no masses, no pulsatile masses. [] Skin: Warm, dry, no erythema, no rash. [] Back: No bony spinal tenderness, normal ROM Extremities: No tenderness, no cyanosis, no clubbing, ROM intact, no edema. [] Neurologic: Alert and oriented X 3, normal motor function, normal sensory function, no focal deficits noted. [] Psychologic: Affect normal, judgement normal, mood normal. [] (THOMAS PHILLIP APRN) Current Patient Data: Labs: Current Medications Medications (Trade) Dose Ordered Sig/Fiorella Route PRN Reason Start Time Stop Time Status Last Admin Dose Admin Ketorolac Tromethamine (Toradol Im) 60 mg 1X ONCE IM 02/07/21 15:15 02/07/21 15:29 DC 02/07/21 15:44 Orphenadrine Citrate (Norflex) 60 mg 1X ONCE IM 02/07/21 15:15 02/07/21 15:29 DC 02/07/21 15:44 Vital Signs: Vital Signs Date Time Temp Pulse Resp B/P (MAP) Pulse Ox O2 Delivery O2 Flow Rate FiO2 02/07/21 14:59 98.1 72 18 153/68 (96) 99 Room Air (THOMAS PHILLIP APRN) EKG: EKG: [] (THOMAS PHILLIP APRN) Radiology/Procedures: Radiology/Procedures: []PROCEDURE: CT LUMBAR SPINE WO CONTRAST Exam: CT the lumbar spine without contrast INDICATION: Lumbar back pain, radiating down left leg TECHNIQUE: Sequential axial images through the lumbar spine obtained without IV contrast. Sagittal and coronal reformatted images were reconstructed from the axial data and reviewed. Exposure: One or more of the following in the visualized dose reduction techniques were utilized for this examination: 1. Automated exposure control 2. Adjustment of the MA and/or KV according to patient size 3. Use of iterative of reconstructive technique Comparisons: None FINDINGS: Vertebral body heights and alignment are well-maintained. Fracture to the lumbar spine is not identified. Mild broad-based disc bulge at L3-L4 and L4-L5 without significant neural foraminal or spinal canal stenosis. Visualized paraspinal soft tissues are unremarkable. IMPRESSION: Negative CT lumbar spine for acute traumatic injury. Electronically signed by: Nataliia Ramírez MD (02/07/2021 3:43 PM) [facility] DICTATED AND SIGNED BY: NATALIIA RAMÍREZ MD DATE: 02/07/21 1539 CC: THOMAS PHILLIP APRN; JEANETTE JOY MD ~MTH0 0 (THOMAS PHILLIP APRN) Heart Score: C/O Chest Pain: N/A Risk Factors: Risk Factors: DM, Current or recent (<one month) smoker, HTN, HLP, family history of CAD, obesity. Risk Scores: Score 0 - 3: 2.5% MACE over next 6 weeks - Discharge Home Score 4 - 6: 20.3% MACE over next 6 weeks - Admit for Clinical Observation Score 7 - 10: 72.7% MACE over next 6 weeks - Early Invasive Strategies (THOMAS PHILLIP APRN) Course & Med Decision Making: Course & Med Decision Making Pertinent Labs and Imaging studies reviewed. (See chart for details) Patient presents to the ER for l. lower back pain that radiates down her buttock and down leg that started 3 days ago, pt diagnosed with "pinched nerve" CT lumbar spine performed that showed no acute findings. Patient treated with anti- inflammatory medications and muscle relaxers. Patient is advised to continue taking the medications as previously prescribed as she already takes meloxicam and gabapentin for these symptoms.. Patient advised to follow-up with her primary care provider, she was given a copy of her CT report. I discussed with patient all findings and diagnostic testing as well as the need to follow-up with PCP for further evaluation and treatment or return to the ER if any new or worsening symptoms. Strict return precautions were also discussed at length. Patient voiced understanding and agreement with the plan. Patient is hemodynamically stable at the time of disposition. (THOMAS PHILLIP APRN) Course & Med Decision Making I was the Attending physician on the above date of service of this patient. This patient was evaluated, examined, treated, and dispositioned from the emergency department by the mid-level practitioner. Although I was working at the time , no assistance was requested. Electronically signed, Gayle Win DO (GAYLE WIN DO) Jim Disclaimer: Jim Disclaimer: This electronic medical record was generated, in whole or in part, using a voice recognition dictation system. (THOMAS PHILLIP APRN) Departure Departure: Impression: Primary Impression: Back pain Qualified Codes: M54.42 - Lumbago with sciatica, left side Disposition: HOME / SELF CARE / HOMELESS Condition: GOOD Referrals: JEANETTE JOY MD (PCP) Patient Instructions: Sciatica Additional Instructions: You were seen in the emergency department today for low back pain. CT imaging was performed of your lumbar spine which showed no acute findings. You were treated with anti-inflammatory medications and a muscle relaxer injection. He continue taking your medications as previously prescribed by your primary care provider. Please follow-up with your primary care provider tomorrow regarding your ER visit. Please return to the emergency department if you develop worsening of your pain, loss of bowel or bladder, numbness or tingling in your groin or down your extremities, or any urinary symptoms, high fevers refractory to treatment or any new or worsening concerns. THOMAS PHILLIP APRN Feb 07, 2021 15:21 GAYLE WIN DO Feb 11, 2021 07:46
--- NOTE | 2021-02-07 15:45 | RAD ---
Exam: CT the lumbar spine without contrast INDICATION: Lumbar back pain, radiating down left leg TECHNIQUE: Sequential axial images through the lumbar spine obtained without IV contrast. Sagittal an d coronal reformatted images were reconstructed from the axial data and reviewed. Exposure: One or more of the following in the visualized dose reduction techniques were utilized for this examination: 1. Automated exposure control 2. Adjustment of the MA and/or KV according to patient size 3. Use of iterative of reconstructive technique Comparisons: None FINDINGS: Vertebral body heights and alignment are well-maintained. Fracture to the lumbar spine is not identified. Mild broad-based disc bulge at L3-L4 and L4-L5 without significant neural foraminal or spinal canal s tenosis. Visualized paraspinal soft tissues are unremarkable. IMPRESSION: Negative CT lumbar spine for acute traumatic injury. Electronically signed by: Nataliia Shepherd MD (02/07/2021 3:43 PM) [facility]
== END 2021-02-07 16:10 | disposition home or self-care (01) ==
LOC: ER 14:55
DX: M54.42 Lumbago with sciatica, left side (principal); F41.9 Anxiety disorder, unspecified; M19.90 Unspecified osteoarthritis, unspecified site; F31.9 Bipolar disorder, unspecified; J44.9 Chronic obstructive pulmonary disease, unspecified; E11.9 Type 2 diabetes mellitus without complications; F17.210 Nicotine dependence, cigarettes, uncomplicated; Z88.1 Allergy status to other antibiotic agents; Z88.0 Allergy status to penicillin; Z88.8 Allergy status to other drugs, medicaments and biological substances
CPT/HCPCS: 72131; 96372; 99284; J1885; J2360

== ENCOUNTER → 2021-05-12 | Outpatient (CLI) | payer MEDICARE ==
--- NOTE | 2021-05-12 11:10 | RAD ---
PA and lateral chest. HISTORY: Dyspnea, COPD, chronic cough PA and lateral views the chest were compared with a study from October 2020. Lungs are free of infiltr ates. There is a hiatus hernia behind the heart. There is no effusion. IMPRESSION: 1. Hiatus hernia. 2. No acute infiltrates. Electronically signed by: Antoine Goldstein MD (05/12/2021 11:08 AM) [facility]
== END ==
LOC: RAD 10:40
PROVIDERS: ATTEND Physician Assistant
DX: R06.00 Dyspnea, unspecified (principal); K44.9 Diaphragmatic hernia without obstruction or gangrene
CPT/HCPCS: 71046

== ENCOUNTER 2021-06-04 10:45 | Emergency (ER) | payer MEDICARE ==
[~2021-06-04] VITALS: Ht 165.1 cm; Wt 122.0 kg
[2021-06-04] MEDS ORDERED: IV NORMAL SALINE 1,000ML 1,000 ML IV ONE (11:15)
[2021-06-04] MEDS ORDERED: IPRATRPIUM/ALBUTEROL 0.5/2.5MG 3 ML NEBU. NEB ONE (11:30)
[2021-06-04] MEDS ORDERED: methylPREDNISolone SOD SUCC PF 125 MG/2 ML VIAL. IV ONE (11:30)
[2021-06-04 11:59] LABS: BASO # 0.1 x10^3/uL (0.0-0.2); BASO % 1 % (0-3); EOS # 0.4 x10^3/uL (0.0-0.7); EOS % 4 % (0-3); HEMATOCRIT 37.6 % (36.0-47.0); HEMOGLOBIN 11.9 g/dL (12.0-15.5); LYMPH # 1.8 x10^3/uL (1.0-4.8); LYMPH % 18 % (24-48); MEAN CORPUSCULAR HEMOGLOBIN 25 pg (25-35); MEAN CORPUSCULAR HGB CONC 32 g/dL (31-37); MEAN CORPUSCULAR VOLUME 80 fL (79-100); MONO # 0.7 x10^3/uL (0.0-1.1); MONO % 7 % (0-9); NEUT % 70 % (31-73); PLATELET COUNT 323 x10^3/uL (140-400); RED BLOOD COUNT 4.72 x10^6/uL (3.50-5.40); RED CELL DISTRIBUTION WIDTH 19.6 % (11.5-14.5)
[2021-06-04 12:07] LABS: CALCIUM 9.1 mg/dL (8.5-10.1); CREATININE 0.9 mg/dL (0.6-1.0); GFR 63.9; POTASSIUM 3.8 mmol/L (3.5-5.1)
[2021-06-04 12:20] LABS: ALBUMIN 3.3 g/dL (3.4-5.0); ALBUMIN/GLOBULIN RATIO 0.9 (1.0-1.7); TOTAL BILIRUBIN 0.4 mg/dL (0.2-1.0)
[2021-06-04] MEDS ORDERED: IPRATROPIUM BROMIDE 0.5 MG/2.5 ML NEBU. NEB ONE (13:30)
--- NOTE | 2021-06-04 14:00 | RAD ---
EXAMINATION: Chest radiograph. VIEWS: 1 COMPARISON: 05/12/2021 INDICATION:61 years, Female, shortness of breath. FINDINGS: Normal cardiomediastinal silhouette. Patchy airspace opacity in the left lung base, new since prior e xam. No pleural effusion or pneumothorax. No acute osseous process. IMPRESSION: Patchy airspace opacity in the left lung base, differential includes pneumonia versus atelectatic ann nges. Electronically signed by: Parveen Lorenzo MD (06/04/2021 1:58 PM) [facility]
[2021-06-04] MEDS ORDERED: LEVO750T5 PO (14:39)
[2021-06-04] MEDS ORDERED: METH4TAB2 PO (14:39)
[2021-06-04 14:40] VITALS: BP 114/62
--- NOTE | 2021-06-04 14:40 | PHYS DOC ---
Past History Past Medical History: Anxiety, Arthritis, Bipolar, COPD, Depression, Diabetes Past Surgical History: Hysterectomy, Tubal ligation Smoking: Cigarettes Alcohol Use: None Drug Use: None General Adult EDM: Chief Complaint: SHORTNESS OF BREATH HPI: HPI: Patient is a 61-year-old female who presents with shortness of breath, wheezing, chills. Patient has history of COPD. Patient states that her symptoms are the same as when she has aexacerbation from COPD. Patient's been using breathing treatments at home but has not been helping with symptoms. Unknown fever at home. Denies chest pain. Denies recent travel. No known exposure to illness. Patient reports chills. Patient's history of hypertension, diabetes, COPD, bipolar disorder, anxiety, depression. Review of Systems: Review of Systems: ROS At least 10 ROS systems have been reviewed and are negative except as documented in the HPI. General: Negative except as outlined in HPI above. Skin: Negative except as outlined in HPI above. HEENT: Negative except as outlined in HPI above. Neck: Negative except as outlined in HPI above. Respiratory: Negative except as outlined in HPI above.. Cardiovascular: Negative except as outlined in HPI above. Abdomen: Negative except as outlined in HPI above. : Negative except as outlined in HPI above. Back/MSK: Negative except as outlined in HPI above. Neuro: Negative except as outlined in HPI above. Psych: Negative except as outlined in HPI above. Current Medications: Current Meds: Current Medications Medications (Trade) Dose Ordered Sig/Fiorella Start Time Stop Time Status Last Admin Dose Admin Albuterol/ Ipratropium (Duoneb) 3 ml 1X ONCE 06/04/21 11:30 06/04/21 11:31 DC 06/04/21 11:29 3 ML Ipratropium [place] (Atrovent) 0.5 mg 1X ONCE 06/04/21 13:30 06/04/21 13:31 DC 06/04/21 13:33 0.5 MG Methylprednisolone Sodium Succinate (SOLU-Medrol 125MG VIAL) 125 mg 1X ONCE 06/04/21 11:30 06/04/21 11:31 DC 06/04/21 11:38 125 MG Sodium Chloride 1,000 ml @ 1,000 mls/hr 1X ONCE 06/04/21 11:15 06/04/21 12:14 DC 06/04/21 11:35 1,000 MLS/HR Allergies: Allergies: Allergies Coded Allergies Type Severity Reaction Last Updated Verified amoxicillin Allergy Intermediate Rash 10/14/20 Yes carbamazepine Allergy Intermediate 10/14/20 Yes penicillin G Allergy Intermediate Hives 10/14/20 Yes Uncoded Allergies Type Severity Reaction Last Updated Verified control Adverse Reaction Intermediate 05/16/14 Physical Exam: PE: Constitutional: Well developed, well nourished, no acute distress, non-toxic appearance. [] HENT: bilateral external ears normal, oropharynx moist, no oral exudates, nose normal. [] Eyes: PERRLA, conjunctiva normal, no discharge. [] Neck: Normal range of motion, no tenderness, supple, no stridor. [] Cardiovascular:Heart rate regular rhythm, no murmur [] Lungs & Thorax: Wheezing heard throughout Abdomen: Bowel sounds normal, soft, no tenderness, no masses, no pulsatile masses. [] Skin: Warm, dry, no erythema, no rash. [] Back: No tenderness, no CVA tenderness. [] Extremities: No tenderness, no cyanosis, no clubbing, ROM intact, no edema. [] Neurologic: Alert and oriented X 3, normal motor function, normal sensory function, no focal deficits noted. [] Psychologic: Affect normal, judgement normal, mood normal. [] Current Patient Data: Labs: Laboratory Tests Test 06/04/21 11:30 White Blood Count 10.0 x10^3/uL (4.0-11.0) Red Blood Count 4.72 x10^6/uL (3.50-5.40) Hemoglobin 11.9 g/dL (12.0-15.5) L Hematocrit 37.6 % (36.0-47.0) Mean Corpuscular Volume 80 fL (79-100) Mean Corpuscular Hemoglobin 25 pg (25-35) Mean Corpuscular Hemoglobin Concent 32 g/dL (31-37) Red Cell Distribution Width 19.6 % (11.5-14.5) H Platelet Count 323 x10^3/uL (140-400) Neutrophils (%) (Auto) 70 % (31-73) Lymphocytes (%) (Auto) 18 % (24-48) L Monocytes (%) (Auto) 7 % (0-9) Eosinophils (%) (Auto) 4 % (0-3) H Basophils (%) (Auto) 1 % (0-3) Neutrophils # (Auto) 7.0 x10^3uL (1.8-7.7) Lymphocytes # (Auto) 1.8 x10^3/uL (1.0-4.8) Monocytes # (Auto) 0.7 x10^3/uL (0.0-1.1) Eosinophils # (Auto) 0.4 x10^3/uL (0.0-0.7) Basophils # (Auto) 0.1 x10^3/uL (0.0-0.2) Sodium Level 137 mmol/L (136-145) Potassium Level 3.8 mmol/L (3.5-5.1) Chloride Level 102 mmol/L (98-107) Carbon Dioxide Level 27 mmol/L (21-32) Anion Gap 8 (6-14) Blood Urea Nitrogen 8 mg/dL (7-20) Creatinine 0.9 mg/dL (0.6-1.0) Estimated GFR (Cockcroft-Gault) 63.9 BUN/Creatinine Ratio 9 (6-20) Glucose Level 115 mg/dL (70-99) H Calcium Level 9.1 mg/dL (8.5-10.1) Total Bilirubin 0.4 mg/dL (0.2-1.0) Aspartate Amino Transferase (AST) 14 U/L (15-37) L Alanine Aminotransferase (ALT) 26 U/L (14-59) Alkaline Phosphatase 80 U/L (46-116) BV-Ztz-Q-Type Natriuretic Peptide 347 pg/mL (0-124) H Total Protein 7.0 g/dL (6.4-8.2) Albumin 3.3 g/dL (3.4-5.0) L Albumin/Globulin Ratio 0.9 (1.0-1.7) L Vital Signs: Vital Signs Date Time Temp Pulse Resp B/P (MAP) Pulse Ox O2 Delivery O2 Flow Rate FiO2 06/04/21 13:33 97 Room Air 06/04/21 10:50 97.6 62 24 125/68 (87) EKG: EKG: [] Radiology/Procedures: Radiology/Procedures: []EXAMINATION: Chest radiograph. VIEWS: 1 COMPARISON: 05/12/2021 INDICATION:61 years, Female, shortness of breath. FINDINGS: Normal cardiomediastinal silhouette. Patchy airspace opacity in the left lung base, new since prior exam. No pleural effusion or pneumothorax. No acute osseous process. IMPRESSION: Patchy airspace opacity in the left lung base, differential includes pneumonia versus atelectatic changes. Electronically signed by: Parveen Lorenzo MD (06/04/2021 1:58 PM) [facility] Heart Score: C/O Chest Pain: No Risk Factors: Risk Factors: DM, Current or recent (<one month) smoker, HTN, HLP, family history of CAD, obesity. Risk Scores: Score 0 - 3: 2.5% MACE over next 6 weeks - Discharge Home Score 4 - 6: 20.3% MACE over next 6 weeks - Admit for Clinical Observation Score 7 - 10: 72.7% MACE over next 6 weeks - Early Invasive Strategies Course & Med Decision Making: Course & Med Decision Making Pertinent Labs and Imaging studies reviewed. (See chart for details) [] 61-year-old female presents with COPD exacerbation. Patient's been using her breathing treatments at home with little relief. Patient also reports chills. Work-up in ER consisted of labs, urinalysis, chest x-ray. Patient given Solu- Medrol, breathing treatment. All labs unremarkable. Chest x-ray cannot rule out pneumonia. Patient reports breathing improved but requesting another breathing treatment. Discussed all results with patient. Patient reports symptoms have improved since second breathing treatment. I am sending patient home on antibiotics along with steroids. Advised patient to make sure she continues to check her blood sugars and takes her insulin as directed. Discussed return precautions. Patient verbalizes understanding of discharge instructions. Dragon Disclaimer: Chantalon Disclaimer: This electronic medical record was generated, in whole or in part, using a voice recognition dictation system. Departure Departure: Impression: Primary Impression: COPD exacerbation Additional Impression: Shortness of breath Disposition: 01 HOME / SELF CARE / HOMELESS Condition: STABLE Referrals: [facility] DAILY (PCP) Patient Instructions: Shortness of Breath, [id number] Additional Instructions: You are seen the emergency room for COPD exacerbation. You were given 2 breathing treatments while in the ER. You were also given steroids. I am sending you home with steroids and antibiotic. Chest x-ray could not rule out pneumonia. Please make sure you take the medication as directed. Please call your doctor make an appointment for early this week for follow-up. Make sure you are continuing to check your blood sugars regularly and following your sliding scale. Return to emergency room with worsening symptoms or concern such as increase in shortness of breath, chest pain. EMERGENCY DEPARTMENT GENERAL DISCHARGE INSTRUCTIONS Thank you for coming to [facility] (ED) today and trusting us with you care. We trust that you had a positivie experience in our Emergency Department. If you wish to speak to the department management, you may call the director at [phone]. YOUR FOLLOW UP INSTRUCTIONS ARE FOLLOWS: 1. Do you have a private Doctor? If you do not have a private doctor, please ask for a resource list of physicians or clinics that may be able to assist you with follow up care. 2. The Emergency Physician has interpreted your x-rays. The X-Ray specialist will also review them. If there is a change in the findings, you will be notified in 48 hours when at all possible. 3. A lab test or culture has been done, your results will be reviewed and you will be notified if you need a change in treatment. ADDITIONAL INSTRUCTIONS AND INFORMATION: 1. Your care today has been supervised by a physician who is specially trained in emergency care. Many problems require more than one evaluation for a complete diagnosis and treatment. We recommend that you schedule your follow up appointment as recommended to ensure complete treatment of you illness or injury. If you are unable to obtain follow up care and continue to have a problem, or if your condition worsens, we recommend that you return to the ED. 2. We are not able to safely determine your condition over the phone nor are we able to give sound medical advice over the phone. For these safety reasons, if you call for medical advice we will ask you to come to the ED for further evaluation. 3. If you have any questions regarding these discharge instructions please call the ED at [phone]. SAFETY INFORMATION: In the interest of safety, wellness, and injury prevention; we encourage you to wear your sealbelt, if you smoke; quite smoking, and we encourage family to use a protective helmet for bicycling and other sporting events that present an increased risk for head injury. IF YOUR SYMPTOMS WORSEN OR NEW SYMPTOMS DEVELOP, OR YOU HAVE CONCERNS ABOUT YOUR CONDITION; OR IF YOUR CONDITION WORSENS WHILE YOU ARE WAITING FOR YOUR FOLLOW UP APPOINTMENT; EITHER CONTACT YOUR PRIMARY CARE DOCTOR, THE PHYSICIAN WHOSE NAME AND NUMBER YOU WERE GIVEN, OR RETURN TO THE ED IMMEDIATELY. Scripts Levofloxacin (LEVOFLOXACIN) 750 Mg Tablet 1 TAB PO DAILY for pneumonia for 7 Days, #7 TAB Prov: THIERNO MIRANDA APRN 06/04/21 Methylprednisolone (MEDROL) 4 Mg Tab.ds.pk 1 PKG PO UD for inflammation for 6 Days, #1 PKG 0 Refills Prov: THIERNO MIRANDA APRN 06/04/21 THIERNO MIRANDA APRN Jun 04, 2021 14:39
== END 2021-06-04 14:45 | disposition home or self-care (01) ==
LOC: ER 11:15
DX: J44.1 Chronic obstructive pulmonary disease with (acute) exacerbation (principal); F41.9 Anxiety disorder, unspecified; M19.90 Unspecified osteoarthritis, unspecified site; F31.9 Bipolar disorder, unspecified; E11.9 Type 2 diabetes mellitus without complications; F17.210 Nicotine dependence, cigarettes, uncomplicated; Z88.1 Allergy status to other antibiotic agents; Z88.0 Allergy status to penicillin; Z88.8 Allergy status to other drugs, medicaments and biological substances
CPT/HCPCS: 36415; 71045; 80053; 83880; 85025; 94640; 96361; 96374; 99285; J2930; J7030